=== PATIENT | female | born 1980 | race Caucasian/White ===

== ENCOUNTER 2018-05-24 01:42 | Emergency (ER) | payer OTHER, SELFPAY ==
[2018-05-24 01:46] VITALS: BP 130/84; PULSE 89; RESP 18; TEMP 37; O2SAT 100; BMI 25.0
[2018-05-24] MEDS: ONDANSETRON 4 MG/2 ML INJ IV (02:08)
[2018-05-24] MEDS: SODIUM CHLORIDE 0.9% 1,000 ML 1000 ML IV (02:08)
[2018-05-24 02:11] LABS: Add Manual Diff / Slide Review NO; Basophils Percent Auto 0.5 % (0-2); Eosinophils Percent Auto 2.6 % (2-4); Hematocrit 38.2 % (36-46); Hemoglobin 12.8 g/dL (12.0-16.0); Lymphocytes Percent Auto 26.2 % (25-40); Mean Corpuscular HGB Conc 33.4 % (30-36); Mean Corpuscular Hemoglobin 30.4 PG (26-34); Mean Corpuscular Volume 91.1 fL (80-100); Neutrophils Absolute Auto 7800 /uL (3000-5900); Neutrophils Percent Auto 64.7 % (50-75); Platelet Count 246 X10^3/uL (150-400); Red Blood Cell Count 4.19 X10^6/uL (4.0-5.2); Red Cell Distribution Width 12.7 % (11.6-14.8)
[2018-05-24 02:21] LABS: Alanine Aminotransferase 19 IU/L (9-52); Albumin 4.5 g/dL (3.5-5.0); Albumin Globulin Ratio 1.5 (1.0-2.8); Alkaline Phosphatase 39 U/L (38-126); Aspartate Aminotransferase 22 IU/L (14-36); Bilirubin Total 0.3 mg/dL (0.2-1.3); Blood Urea Nitrogen 9 mg/dL (7-17); Calcium 9.4 mg/dL (8.4-10.2); Carbon Dioxide 27 mmol/L (22-32); Chloride 105 mmol/L (98-107); Estimated Glomerular Filt Rate > 60.0 mL/min (>60); Glucose 98 mg/dL (70-100); HEMOLYSIS < 15 (0-50); Potassium 3.8 mmol/L (3.4-5.1); Sodium 145 mmol/L (137-145); Total Protein 7.5 g/dL (6.3-8.2)
[2018-05-24 02:31] LABS: Appearance Urine UA CLOUDY; Bilirubin Urine UA 1+ (NEGATIVE); Color Urine UA YELLOW; Glucose Urine UA NEGATIVE (Normal); Ketones Urine UA NEGATIVE (NEGATIVE); Leukocyte Esterase Urine UA 2+ (NEGATIVE); Nitrite Urine UA Negative (Negative); Occult Blood Urine UA 3+ (Negative); Protein Urine UA 2+ (Negative); Specific Gravity Urine UA 1.015 (1.000-1.035); Urobilinogen Urine UA 0.2 E.U./dL (0.2)
[2018-05-24] MEDS: CEFTRIAXONE 1 GM/50 ML FROZ.PIGGY IV (02:34)
[2018-05-24 02:40] LABS: Pregnancy Test Urine Negative (Negative)
--- NOTE | 2018-05-24 02:40 | ED_ITS ---
HPI - Female Genitourinary General Chief complaint: Urogenital-Female Stated complaint: right side back pain, thinks she has kidney stone Time Seen by Provider: 05/24/18 01:44 Source: patient Mode of arrival: ambulatory Limitations: no limitations History of Present Illness HPI Narrative: 37-year-old female with history of frequent UTIs presents to the emergency department with a chief complaint of 2 days of dysuria, frequency and urgency and the development of significant right flank pain with nausea this evening. She was most recently treated for a UTI about 2 weeks ago and had a 5 day course of an unknown antibiotic. She states she had a complete resolution of her symptoms until 2 days ago. She denies provocation, palliation of her pain but does admit it starts in her right flank and wraps around her right side a bit. She denies any history of kidney stones. She states is unlikely as she has had a tubal ligation but she is sexually active. She denies vaginal bleeding or discharge MD Complaint: dysuria and UTI Onset (ago): day(s) Female Urogenital Radiation: R Flank Severity: severe Quality: Aching, Burning and Cramping Duration: constant Relieving factors: none Exacerbating factors: none Urinary symptoms: Difficulty Urinating, Dysuria, Flank Pain, Foul Smelling Urine , Frequency, Hematuria and Urgency Patient : No Related Data Home Medications Medication Instructions Recorded Confirmed etodolac 400 mg PO TID 05/24/18 05/24/18 Previous Rx's Medication Instructions Recorded cephalexin [Keflex] 500 mg PO QID 14 Days #56 cap 05/24/18 hydrocodone-acetaminophen 1 tab PO Q4-6H PRN #14 tab 05/24/18 ondansetron [Zofran ODT] 4 mg PO Q6H PRN #14 tab 05/24/18 Allergies Allergy/AdvReac Type Severity Reaction Status Date / Time nitrofurantoin Allergy Unknown Verified 05/24/18 02:53 [NITROFURANTOIN] zolpidem [ZOLPIDEM] AdvReac Unknown hallucinate Verified 05/24/18 02:53 Review of Systems Review of Systems All systems reviewed & are unremarkable except as noted in HPI and below Constitutional Denies chills, Denies fever(s), Denies lethargy and Denies weakness Eyes Denies change in vision, Denies eye discharge, Denies irritation and Denies loss of vision ENT Ears, Nose, Mouth, and Throat: Denies change in voice, Denies neck pain and Denies sore throat Cardiovascular Denies chest pain, Denies irregular heart rhythm, Denies lightheadedness, Denies palpitations, Denies dyspnea, Denies dyspnea on exertion and Denies orthopnea Respiratory Denies cough, Denies dyspnea, Denies dyspnea on exertion and Denies wheezing Gastrointestinal Gastrointestinal: Denies abdominal pain, Denies change in bowel habits, Denies diarrhea, Reports nausea and Denies vomiting Genitourinary Reports hematuria, Denies flank pain, Denies urinary incontinence and Reports urinary urgency Musculoskeletal Denies neck pain Integumentary/Breasts Denies pruritus, Denies erythema, Denies rash and Denies wounds Neurologic Denies confusion, Denies loss of vision and Denies weakness Psychiatric Denies anxiety, Denies confusion, Denies depression, Denies homicidal ideation and Denies suicidal ideation Endocrine Denies palpitations Hematologic/Lymphatic Denies easy bruising Allergic/Immunologic Denies wheezing [facility] Surgical History Status post delivery (06/03/00) Status post delivery (05/14/03) Status post delivery (03/17/14) Exam Narrative Exam Narrative: 37-year-old female in obvious pain, clutching her right flank Initial Vital Signs Initial Vital Signs: Vital Signs Temperature 98.6 F 05/24/18 01:46 Pulse Rate 89 05/24/18 01:46 Respiratory Rate 18 05/24/18 01:46 Blood Pressure 130/84 H 05/24/18 01:46 Pulse Oximetry 100 05/24/18 01:46 Const General: cooperative, well developed and acute distress Nutritional Appearance: well nourished Orientation: alert, awake, oriented x3 and not confused [facility] Head: normocephalic and atraumatic Ears: external ears normal and TM's normal bilaterally Nose: external nose normal and No nasal discharge Face and sinus: sinuses nontender, face symmetric, no sinus tenderness and No dry mucous membranes Mouth: oral mucosae normal and moist mucous membranes Teeth and gingiva: dentition normal Throat: tonsils normal and uvula midline Chest Chest: normal inspection of the chest Cardio Rate: regular rate Rhythm: regular rhythm Heart Sounds: no click, no gallops, no murmurs and no rubs Pulses: normal peripheral pulses Back/Spine/Pelvis Back: No CVA tenderness Cervical Spine: cervical ROM normal and No pain with cervical ROM Thoracic/Lumbar Spine: thoracic and lumbar spine normal to inspection Skin General: no rashes or lesions noted, No jaundice and No petechiae Neuro General: alert, oriented x3, gait normal and no focal motor deficits Speech: speech normal Extrem General: full ROM, no clubbing, cyanosis or edema, no pedal edema and no calf tenderness Psych Appearance: well kempt Mental Status: mental status grossly normal Attitude: cooperative Thought Content: normal and suicidality Judgment: judgment good Course Orders Ordered: ED Orders 05/24/18 01:55 Ictotest Urine Stat Test Urine Stat Urinalysis and Microscopic Stat Urine Culture Stat 05/24/18 02:00 Complete Blood Count AUTO DIFF Stat Comprehensive Metabolic Panel Stat 05/24/18 02:41 CT kidney ureter bladder (KUB) Stat Discontinued Medications Hydrocodone Bitart/Acetaminophen (Vicodin Prepack) 1 bottle MISC SEEINSTR ONE Stop: 05/24/18 03:19 Last Admin: 05/24/18 03:29 Dose: 1 bottle Sodium Chloride (Normal Saline 0.9%) 1,000 mls @ 1,000 mls/hr IV BOLUS ONE Stop: 05/24/18 02:51 Last Infusion: 05/24/18 03:29 Dose: 0 mls/hr Admin: 05/24/18 02:08 Dose: 1,000 mls/hr Ceftriaxone Sodium/Dextrose (Rocephin) 1 gm in 50 mls @ 100 mls/hr IV NOW ONE Stop: 05/24/18 02:54 Last Infusion: 05/24/18 03:29 Dose: 0 mls/hr Admin: 05/24/18 02:34 Dose: 100 mls/hr Ondansetron HCl (Zofran) 4 mg IV NOW ONE Stop: 05/24/18 01:53 Last Admin: 05/24/18 02:08 Dose: 4 mg Ondansetron HCl (Zofran Odt Prepack) 1 bottle MISC SEEINSTR ONE Stop: 05/24/18 03:19 Last Admin: 05/24/18 03:29 Dose: 1 bottle Vital Signs - 8 hr 05/24/18 01:46 05/24/18 03:38 Temperature 98.6 F Pulse Rate 89 71 Respiratory Rate 18 16 Blood Pressure 130/84 H 107/75 Pulse Oximetry 100 99 MDM - Female Genitourinary Differential Diagnosis Likely urinary tract infection, bacterial vaginosis, ovarian cyst and cystitis Medical Records Attestation: I reviewed the patient's medical records. Lab Data Attestation: I reviewed the patient's lab results. Result diagrams: 05/24/18 02:00 05/24/18 02:00 Lab Results 05/24/18 05/24/18 05/24/18 Range/Units 01:55 02:00 02:00 WBC 12.0 H (4.5-11.0) X10^3/uL RBC 4.19 (4.0-5.2) X10^6/uL Hgb 12.8 (12.0-16.0) g/dL Hct 38.2 (36-46) % MCV 91.1 (80-100) fL MCH 30.4 (26-34) PG MCHC 33.4 (30-36) % RDW 12.7 (11.6-14.8) % Plt Count 246 (150-400) X10^3/uL Neut % (Auto) 64.7 (50-75) % Lymph % (Auto) 26.2 (25-40) % Grand % (Auto) 6.0 (3-14) % Eos % (Auto) 2.6 (2-4) % Baso % (Auto) 0.5 (0-2) % Neut # (Auto) 7800 H (1595-8214) /uL Sodium 145 (137-145) mmol/L Potassium 3.8 (3.4-5.1) mmol/L Chloride 105 (98-107) mmol/L Carbon Dioxide 27 (22-32) mmol/L BUN 9 (7-17) mg/dL Creatinine 0.60 (0.52-1.04) mg/dL Estimated GFR > 60.0 (>60) mL/min BUN/Creatinine Ratio 15.0 (6-22) Glucose 98 (70-100) mg/dL Calcium 9.4 (8.4-10.2) mg/dL Total Bilirubin 0.3 (0.2-1.3) mg/dL AST 22 (14-36) IU/L ALT 19 (9-52) IU/L Alkaline Phosphatase 39 (38-126) U/L Total Protein 7.5 (6.3-8.2) g/dL Albumin 4.5 (3.5-5.0) g/dL Globulin 3.0 (1.7-4.1) g/dL Albumin/Globulin Ratio 1.5 (1.0-2.8) Urine Color Yellow Urine Appearance Cloudy Urine pH 7.0 (4.5-8.0) Ur Specific [place] 1.015 (1.000-1.035) Urine Protein 2+ H (Negative) Urine Glucose (UA) Negative (Normal) g/dL Urine Ketones Negative (NEGATIVE) Urine Occult Blood 3+ H (Negative) Urine Nitrate Negative (Negative) Urine Bilirubin 1+ H (NEGATIVE) Urine Ictotest Negative (Negative) Urine Urobilinogen 0.2 (0.2) E.U./dL Ur Leukocyte Esterase 2+ H (NEGATIVE) Urine RBC 30-100/hpf H (0-5/HPF) Urine WBC 30-100/hpf H (0-5/HPF) Ur Squamous Epith Cells 0-1 /hpf Urine Bacteria Moderate (10-30) H (None) Ur Culture Indicated? Specimen cultured Micro UA Comment Not Reportable Urine Test Negative (Negative) Imaging Data CT scan - abdomen: Radiologist's impression: Very mild right hydroureteronephrosis without CT suicide ureteral or bladder stone. Findings may relate to a recently passed stone given patient's history MDM Narrative Medical decision making narrative: Patient has frequent history of urinary tract infections and classic description of UTI including dysuria, frequency, urgency and hematuria. She progressed to flank pain with nausea which is certainly most consistent with a pyelonephritis however given lack of provocation and palliation the question of kidney stone presents itself. There is no kidney stone noted on the CT but suggestion of potential for a passed stone. The patient is not septic and her symptoms are greatly improved after taking her own he total lack with our IV fluids. She is appropriate to discharge and follow up in the office Discharge Plan Departure Patient Disposition: Home Clinical Impression: Urinary tract infection Discharge Date/Time: 05/24/18 03:41 Interventions: ED Discharge Assessment Last Done: 05/24/18 03:38 Instructions: DI for Kidney Infection Activity Restrictions/Additional Instructions: *You have been diagnosed with [ acute pyelonephritis ] *What to do: *Take medications as directed *Follow up with your primary care provider in 2-3 days, call for an appointment. Let them know you were seen in the Emergency Department and that we ask that you be seen in follow up *Return to ER if you should have any new, worsening or concerning symptoms Prescriptions: New hydrocodone-acetaminophen 5-325 mg tablet 1 tab PO Q4-6H PRN (Reason: pain) Qty: 14 RF: 0 cephalexin [Keflex] 500 mg capsule 500 mg PO QID 14 Days Qty: 56 RF: 0 ondansetron [Zofran ODT] 4 mg tablet,disintegrating 4 mg PO Q6H PRN (Reason: nausea and vomiting) Qty: 14 RF: 0 No Action etodolac 400 mg Tablet 400 mg PO TID RF: 0 Referrals: Daniel Davis MD [Family Provider] -
--- NOTE | 2018-05-24 02:41 | DI.CT.S_ITS ---
PROCEDURE: CT KIDNEY URETER BLADDER (KUB) INDICATIONS: R flank pain, hematuria, radiation to groin TECHNIQUE: Noncontrast 5 mm thick sections acquired from the diaphragms to the symphysis. 5 mm thick coronal and sagittal reformats were then performed. For radiation dose reduction, the following was used: automated exposure control, adjustment of mA and/or kV according to patient size. COMPARISON: None. FINDINGS: Image quality: Excellent. Lung bases: Lung bases are clear. Heart size is normal. Urinary system: Both kidneys are normal in size. No kidney stones. No definite hydronephrosis is seen. There is mild right renal pelviectasis, and possible ureteral dilatation raising the possibility of recently passed right sided calculus although recommend clinical correlation. No left-sided urolithiasis. Bladder wall thickness is normal; no calcified bladder stones. Other solid organs: Liver is normal in size. Gallbladder unremarkable. Pancreas is normal in contours. Spleen is normal in size. No adrenal nodules. Peritoneum and bowel: Unenhanced bowel loops demonstrate normal wall thickness and caliber. No free fluid or air. Appendix appears normal in size. There is air in the lumen and some segments there there is a possible 1-2 mm appendicolith although technically indeterminate image 68. Nodes and vessels: No retroperitoneal or mesenteric adenopathy by size criteria. Aorta and inferior vena cava are normal in caliber. Abdominal wall: Tiny fat containing umbilical hernia noted Pelvis: Uterus and ovaries grossly unremarkable. Trace, possibly physiologic, pelvic and right adnexal fluid, although this could be due to a ruptured right ovarian cyst recommend clinical correlation with pelvic ultrasound followup if clinically necessary. No inguinal hernias or adenopathy. Bones: No suspicious bony lesions. No vertebral body compression fractures. IMPRESSION: No definite urolithiasis is currently visualized. Possible recently passed right sided calculus as discussed above although recommend clinical correlation. No evidence of acute appendicitis. No bowel obstruction. Dictated by: Warren Almeida M.D. on 05/24/2018 at 7:22 Approved by: Warren Almeida M.D. on 05/24/2018 at 7:27
[2018-05-24 02:48] LABS: Ictotest Urine Negative (Negative)
[2018-05-24 02:49] LABS: RBC Urine 30-100/HPF (0-5/HPF)
[2018-05-24 02:50] LABS: Bacteria Urine Moderate (10-30); Culture Indicated Urine Specimen Cultured; Squamous Epithelial Cell Urine 0-1 /HPF; WBC Urine 30-100/HPF (0-5/HPF)
[2018-05-24] MEDS: ONDANSETRON 4 MG ODT PREPACK 1 BOTTLE MISC (03:29)
[2018-05-24] MEDS: HYDROCODONE/ACET 5/325 PREPACK 1 BOTTLE MISC (03:29)
[2018-05-24 03:38] VITALS: BP 107/75; PULSE 71; RESP 16; O2SAT 99
== END 2018-05-24 03:41 | disposition home or self-care (01) ==
PROVIDERS: Emergency Provider Emergency Medicine; Family Provider Family Medicine
DX: N39.0 Urinary tract infection, site not specified (principal)
CPT/HCPCS: 36591; 74176; 80053; 81001; 81025; 85025; 87077; 87086; 87186; 96365; 96375; 99283; 99284; J2405

== ENCOUNTER → 2018-08-17 13:03 | Outpatient (CLI) | payer OTHER, SELFPAY ==
--- NOTE | 2018-08-17 | DI.US.S_ITS ---
LIMITED ULTRASOUND OF RIGHT BREAST: 08/17/2018 CLINICAL: Focal right breast pain. Comparison is made to exam dated: 08/17/2018 [facility]. Real-time and Doppler ultrasound of the right breast upper outer quadrant were performed. [place] scale images of the real-time examination were reviewed. Targeted ultrasound was performed in the region of the patient's reported focal painful palpable abnormality in the upper outer right breast. No underlying breast mass or abnormality is identified. IMPRESSION: NEGATIVE 1) No ultrasound findings to explain patient's reported focal pain/palpable abnormality. Recommend clinical follow-up for further evaluation and management of the patient's reported symptoms. 2) There is no sonographic evidence of malignancy in the imaged upper outer right breast. Annual screening mammography beginning at age 40 is recommended. The patient is advised to monitor her breasts and to return sooner for re-evaluation should she feel anything grow or change. This exam was interpreted at Station ID: [id number]. Electronically Signed By: Bo Garcia M.D. ecl/:08/17/2018 15:13:04 letter sent: Clinical Evaluation Ultrasound BI-RADS: 1 Negative
--- NOTE | 2018-08-17 | DI.MG.S_ITS ---
BILATERAL DIGITAL DIAGNOSTIC MAMMOGRAM 3D/2D: 08/17/2018 CLINICAL: Right breast lump and pain. Baseline exam. No prior exams were available for comparison. The tissue of both breasts is extremely dense, which lowers the sensitivity of mammography. There is a triangular marker overlying the skin of the upper outer right breast at posterior depth at the site of the patient's reported focal painful palpable abnormality. There is no underlying mammographic abnormality. No significant masses, calcifications, or other findings are seen in either breast. IMPRESSION: INCOMPLETE: NEEDS ADDITIONAL IMAGING EVALUATION No mammographic abnormality to correlate with the site of the patient's reported focal painful palpable abnormality. Targeted diagnostic ultrasound recommended for further evaluation, which will be performed immediately following this exam. This exam was interpreted at Station ID: [id number]. NOTE: For mammograms, a report in lay terms will be sent to the patient. Approximately 15% of breast malignancies will not be visualized mammographically. In the management of a palpable breast mass, a negative mammogram must not discourage biopsy of a clinically suspicious lesion. Electronically Signed By: Bo Garcia M.D. ecl/:08/17/2018 13:59:42 letter sent: Additional Imaging Needed ACR BI-RADS Category 0: Incomplete [id number]
== END ==
PROVIDERS: Family Provider Family Medicine; Visit Provider Family Medicine
DX: R92.8 Other abnormal and inconclusive findings on diagnostic imaging of breast (principal); N63.11 Unspecified lump in the right breast, upper outer quadrant; N64.4 Mastodynia
CPT/HCPCS: 76642; 77066; G0279

== ENCOUNTER → 2019-04-19 11:24 | Outpatient (CLI) | payer OTHER, SELFPAY ==
--- NOTE | 2019-04-19 | DI.RAD.S_ITS ---
PROCEDURE: XR CHEST 2V INDICATIONS: Dyspnea TECHNIQUE: 2 views of the chest were acquired. COMPARISON: None. FINDINGS: Surgical changes and devices: None. Lungs and pleura: Lungs are clear. No pleural effusions or pneumothorax. Mediastinum: Mediastinal contours are normal. Heart size is normal. Bones and chest wall: No suspicious bony abnormalities. Soft tissues appear unremarkable. IMPRESSION: No acute cardiopulmonary disease. Dictated by: Leilani Mullen M.D. on 04/19/2019 at 14:59 Approved by: Leilani Mullen M.D. on 04/19/2019 at 14:59
== END ==
PROVIDERS: PCP Family Medicine; Visit Provider Family Medicine
DX: R06.00 Dyspnea, unspecified (principal)
CPT/HCPCS: 71046

== ENCOUNTER 2020-09-22 14:22 | Emergency (ER) | payer OTHER, SELFPAY ==
[2020-09-22 14:30] VITALS: BP 139/63; PULSE 71; RESP 16; TEMP 36.9; O2SAT 100; BMI 25.0
--- NOTE | 2020-09-22 14:37 | DI.RAD.S_ITS ---
PROCEDURE: XR CHEST 1V INDICATIONS: chest pain TECHNIQUE: One view of the chest was acquired. COMPARISON: [facility], CR, XR CHEST 2V, 04/19/2019, 11:34. FINDINGS: Surgical changes and devices: None. Lungs and pleura: Lungs are clear. No pleural effusions or pneumothorax. Mediastinum: Mediastinal contours appear normal. Heart size is normal. Bones and chest wall: No suspicious bony lesions. Overlying soft tissues appear unremarkable. IMPRESSION: Normal portable chest, without a cause of chest pain identified. Dictated by: Agusto Stafford M.D. on 09/22/2020 at 14:39 Approved by: Agusto Stafford M.D. on 09/22/2020 at 14:44
[2020-09-22 14:50] VITALS: O2SAT 99
[2020-09-22 14:51] VITALS: BP 117/69; PULSE 71; O2SAT 100
[2020-09-22 15:00] VITALS: BP 119/77; PULSE 73; O2SAT 100
--- NOTE | 2020-09-22 15:14 | ED.SOB ---
HPI - SOB/Dyspnea General Chief Complaint: Shortness of Breath/Dyspnea Stated Complaint: SOB,Tightness In Chest Time Seen by Provider: 09/22/20 14:36 Source: patient Mode of arrival: Ambulatory Limitations: no limitations History of Present Illness HPI Narrative: 39-year-old female nonsmoker with noncontributory medical history presents with a chief complaint of a few days of anterior chest pressure which makes her feel like it is difficult to breathe. She denies runny nose, sore throat or cough. She has had no fever or chills. She denies any nausea, vomiting or nausea. She denies any radiation of the tightness nor any exertional component. She has had no unexplained diaphoresis. Her recently had similar type symptoms and was tested for COVID which was negative. Her daughter was exposed to a person known to be positive about 1 week ago and has not been tested herself. She denies any recent travel, she does not take control and has never had a blood clot MD Complaint: shortness of breath and pain with inspiration Onset (ago): day(s) Severity: mild Consistency/Duration: constant Relieving factors: nothing Exacerbating factors: nothing Associated symptoms: denies other symptoms Treatment prior to arrival: none Related Data Home oxygen amount: none Home Medications Medication Instructions Recorded Confirmed etodolac 400 mg PO TID 05/24/18 05/24/18 Previous Rx's Medication Instructions Recorded hydrocodone-acetaminophen 1 tab PO Q4-6H PRN #14 tab 05/24/18 ondansetron [Zofran ODT] 4 mg PO Q6H PRN #14 tab 05/24/18 Allergies Allergy/AdvReac Type Severity Reaction Status Date / Time nitrofurantoin Allergy Unknown Verified 09/22/20 14:36 [NITROFURANTOIN] zolpidem [ZOLPIDEM] AdvReac Unknown hallucinate Verified 09/22/20 14:36 Review of Systems Constitutional Constitutional: Denies chills, Denies fatigue, Denies fever(s), Denies frequent falls, Denies lethargy and Denies weakness Eyes Eyes: Denies change in vision, Denies eye discharge, Denies irritation and Denies loss of vision ENT Ears, Nose, Mouth, and Throat: Denies change in voice, Denies dizziness, Denies neck pain, Denies sore throat and Denies throat swelling Cardiovascular Cardiovascular: Denies chest pain (Describes as a squeezing when breathing), Denies irregular heart rhythm, Denies lightheadedness, Denies palpitations, Reports dyspnea, Denies dyspnea on exertion and Denies orthopnea Respiratory Respiratory: Denies cough, Reports dyspnea, Denies dyspnea on exertion and Denies wheezing Gastrointestinal Gastrointestinal: Denies abdominal pain, Denies change in bowel habits, Denies diarrhea, Denies nausea and Denies vomiting Musculoskeletal Musculoskeletal: Denies neck pain and Denies numbness Integumentary/Breasts Skin/Breast: Denies pruritus, Denies erythema, Denies rash and Denies wounds Neurologic Neurologic: Denies behavioral changes, Denies confusion, Denies dizziness, Denies frequent falls, Denies loss of vision, Denies numbness and Denies weakness Psychiatric Psychiatric: Denies anxiety, Denies behavioral changes, Denies confusion, Denies depression, Denies homicidal ideation and Denies suicidal ideation Endocrine Endocrine: Denies fatigue, Denies flushing and Denies palpitations Hematologic/Lymphatic Hematologic/Lymphatic: Denies easy bruising Allergic/Immunologic Allergic/Immunologic: Denies urticaria, Denies throat swelling and Denies wheezing Patient History Surgical History Status post delivery (06/03/00) Status post delivery (05/14/03) Status post delivery (03/17/14) Social History Smoking Status: Never smoker Smoking Status: Never smoker alcohol intake frequency: 0-2 drinks per day Substance Use Type: does not use Exam Narrative Exam Narrative: GENERAL: [39] year old patient appears stated age. Well-nourished, well-developed patient, in mild distress. HEAD: Atraumatic. Normocephalic. EYES: Pupils equal round and reactive. Extraocular motions intact. No scleral icterus. No injection or drainage. ENT: Nose without bleeding, purulent drainage. Throat without erythema, tonsillar hypertrophy or exudate. Airway patent. NECK: Trachea midline. Non tender CARDIOVASCULAR: Regular rate and rhythm without murmurs, gallops, or rubs. RESPIRATORY: Clear to auscultation. Breath sounds equal bilaterally. No wheezes, rales, or rhonchi. GASTROINTESTINAL: Abdomen soft, non-tender, nondistended. EXTREMITIES: No edema or joint tenderness. BACK: Nontender without deformity or crepitance. No flank tenderness. NEURO: AOx3. SKIN: No rash or erythema of visible areas Initial Vital Signs Initial Vital Signs: Vital Signs Temperature 98.4 F 09/22/20 14:30 Pulse Rate 71 09/22/20 14:30 Respiratory Rate 16 09/22/20 14:30 Blood Pressure 139/63 09/22/20 14:30 Pulse Oximetry 100 09/22/20 14:30 Scores HEART Score Heart Score history: Slightly Suspicious Heart Score EKG: Normal Heart Score Age: < 45 years old Heart Score risk factors: No known risk factors Heart Score troponin: < or = to normal limit Heart Score Total: 0 PERC Score Age greater than or equal to 50 years: No Heart rate greater than or equal to 100 bpm: No Room Air O2 Sat less than 95%: No Unilateral leg swelling: No Recent trauma or surgery: No Hemoptysis: No Prior PE or DVT: No Hormone Use: No Total PERC Score: 0 Wells' Criteria for PE Clinical signs and symptoms of DVT: No PE is #1 Dx or equally likely: No Heart rate > 100: No Immobilization at least 3 days or surg in previous 4 weeks: No History of PE or DVT: No Hemoptysis: No Malignancy w/Treatment within 6 months or palliative: No Wells' PE Score total: 0 Course Orders Ordered: ED Orders 09/22/20 14:37 XR chest 1V Stat EKG-12 Lead Stat 09/22/20 15:15 Complete Blood Count AUTO DIFF Stat Comprehensive Metabolic Panel Stat D Dimer Stat Lipase Stat Partial Thromboplastin Time Stat Prothrombin Time INR Stat Troponin & CK Cardiac Panel Stat 09/22/20 15:22 COVID19 Stat Vital Signs Vital signs: Vital Signs - 8 hr 09/22/20 14:30 09/22/20 14:50 09/22/20 14:51 Temperature 98.4 F Pulse Rate 71 71 Respiratory Rate 16 Blood Pressure 139/63 117/69 Pulse Oximetry 100 99 100 09/22/20 15:00 09/22/20 15:30 09/22/20 16:00 Temperature Pulse Rate 73 65 74 Respiratory Rate Blood Pressure 119/77 126/68 126/77 Pulse Oximetry 100 100 99 MDM - SOB/Dyspnea Lab Data Result diagrams: 09/22/20 15:15 09/22/20 15:15 Labs: Lab Results 09/22/20 09/22/20 09/22/20 Range/Units 15:15 15:15 15:15 WBC 7.7 (4.5-11.0) X10^3/uL RBC 4.25 (4.0-5.2) X10^6/uL Hgb 13.0 (12.0-16.0) g/dL Hct 39.3 (36-46) % MCV 92.5 (80-100) fL MCH 30.6 (26-34) PG MCHC 33.1 (30-36) % RDW 12.7 (11.6-14.8) % Plt Count 214 (150-400) X10^3/uL Neut % (Auto) 58.8 (50-75) % Lymph % (Auto) 28.2 (25-40) % [place] % (Auto) 9.4 (3-14) % Eos % (Auto) 3.1 (2-4) % Baso % (Auto) 0.5 (0-2) % Neut # (Auto) 4500 (8411-5431) /uL Lymph # (Auto) 2200 (7208-6866) /uL [place] # (Auto) 700 (0-900) /uL Eos # (Auto) 200 (0-450) /uL Baso # (Auto) 0 (0-100) /uL PT 12.5 (10.1-12.7) SECONDS INR 1.1 (0.9-1.3) APTT 30 (26.4-36.2) SECONDS D-Dimer (<230) ng/mL Sodium 137 (137-145) mmol/L Potassium 4.3 (3.4-5.1) mmol/L Chloride 103 (98-107) mmol/L Carbon Dioxide 30 (22-32) mmol/L BUN 15 (7-17) mg/dL Creatinine 0.65 (0.52-1.04) mg/dL Estimated GFR > 60.0 (>60) mL/min BUN/Creatinine Ratio 23.1 H (6-22) Glucose 91 (70-100) mg/dL Calcium 9.7 (8.4-10.2) mg/dL Total Bilirubin 0.4 (0.2-1.3) mg/dL AST 26 (14-36) IU/L ALT 15 (<35) IU/L Alkaline Phosphatase 54 (38-126) U/L Total Creatine Kinase 52 (30-135) U/L CK-MB (CK-2) TNP CK-MB (CK-2) Rel Index TNP Troponin I < 0.012 (0.01-0.034) ng/mL Total Protein 8.0 (6.3-8.2) g/dL Albumin 4.5 (3.5-5.0) g/dL Globulin 3.5 (1.7-4.1) g/dL Albumin/Globulin Ratio 1.3 (1.0-2.8) Lipase 75 (23-300) U/L COVID-19 PCR (Negative) 09/22/20 09/22/20 Range/Units 15:15 15:22 WBC (4.5-11.0) X10^3/uL RBC (4.0-5.2) X10^6/uL Hgb (12.0-16.0) g/dL Hct (36-46) % MCV (80-100) fL MCH (26-34) PG MCHC (30-36) % RDW (11.6-14.8) % Plt Count (150-400) X10^3/uL Neut % (Auto) (50-75) % Lymph % (Auto) (25-40) % [place] % (Auto) (3-14) % Eos % (Auto) (2-4) % Baso % (Auto) (0-2) % Neut # (Auto) (7124-6471) /uL Lymph # (Auto) (1069-3522) /uL [place] # (Auto) (0-900) /uL Eos # (Auto) (0-450) /uL Baso # (Auto) (0-100) /uL PT (10.1-12.7) SECONDS INR (0.9-1.3) APTT (26.4-36.2) SECONDS D-Dimer 271 H (<230) ng/mL Sodium (137-145) mmol/L Potassium (3.4-5.1) mmol/L Chloride (98-107) mmol/L Carbon Dioxide (22-32) mmol/L BUN (7-17) mg/dL Creatinine (0.52-1.04) mg/dL Estimated GFR (>60) mL/min BUN/Creatinine Ratio (6-22) Glucose (70-100) mg/dL Calcium (8.4-10.2) mg/dL Total Bilirubin (0.2-1.3) mg/dL AST (14-36) IU/L ALT (<35) IU/L Alkaline Phosphatase (38-126) U/L Total Creatine Kinase (30-135) U/L CK-MB (CK-2) CK-MB (CK-2) Rel Index Troponin I (0.01-0.034) ng/mL Total Protein (6.3-8.2) g/dL Albumin (3.5-5.0) g/dL Globulin (1.7-4.1) g/dL Albumin/Globulin Ratio (1.0-2.8) Lipase (23-300) U/L COVID-19 PCR Negative (Negative) Imaging Data Chest x-ray: Radiologist's Impression: Signed Patient: Yudith Servin R#: [id number]: 1980Acct:[id number]/Sex: 39 / FDate of Service: 09/22/20Loc: EDAccession Number: [id number] Procedure: XR chest 1V Ordering Provider: Jarad Bond D.O. PROCEDURE: XR CHEST 1V INDICATIONS: chest pain TECHNIQUE: One view of the chest was acquired. COMPARISON: [facility], , XR CHEST 2V, 04/19/2019, 11:34. FINDINGS: Surgical changes and devices: None. Lungs and pleura: Lungs are clear. No pleural effusions or pneumothorax. Mediastinum: Mediastinal contours appear normal. Heart size is normal. Bones and chest wall: No suspicious bony lesions. Overlying soft tissues appear unremarkable. IMPRESSION: Normal portable chest, without a cause of chest pain identified. Dictated by: Agusto Stafford M.D. on 09/22/2020 at 14:39 Approved by: Agusto Stafford M.D. on 09/22/2020 at 14:44 ECG Data Attestation: I personally reviewed and interpreted this ECG as follows: Interpretation: EKG is normal sinus rhythm rate [ 73] and free of any signs of ischemia or ectopy. No ST segmental elevation or depression. No T wave inversions MDM Narrative Medical decision making narrative: Multiple etiologies for patient's symptoms considered including: [COVID-19 versus atypical pneumonia versus cardiac disease versus pulmonary embolism versus other. D-dimer is slightly above our cutoff, however using Isrrael Fitzpatrick's PE algorithm, it is well below the PE cutoff of 500 which would suggest pursuing PE with CTA ] Patient's symptoms improved over duration of stay with above-stated therapies. Findings and discharge diagnosis discussed with patient/family followed by verbalization of understanding Return precautions discussed with patient/family whom verbalize understanding. Discharge Plan Departure Patient Disposition: Home Clinical Impression: Acute dyspnea Instructions: DI for Shortness of Breath Activity Restrictions/Additional Instructions: *You have been diagnosed with [acute dyspnea with very reassuring exam and labs. Chest x-ray was clear. COVID negative] *What to do: *Take medications as directed *Follow up with your primary care provider in 2-3 days, call for an appointment. Let them know you were seen in the Emergency Department and that we ask that you be seen in follow up *Return to ER if you should have any new, worsening or concerning symptoms Prescriptions: No Action etodolac 400 mg Tablet 400 mg PO TID RF: 0 hydrocodone-acetaminophen 5-325 mg tablet 1 tab PO Q4-6H PRN (Reason: pain) Qty: 14 RF: 0 ondansetron [Zofran ODT] 4 mg tablet,disintegrating 4 mg PO Q6H PRN (Reason: nausea and vomiting) Qty: 14 RF: 0 Referrals: Daniel Davis MD [Primary Care Provider] -
[2020-09-22 15:24] LABS: Add Manual Diff / Slide Review NO; Basophils Absolute Auto 0 /uL (0-100); Basophils Percent Auto 0.5 % (0-2); Eosinophils Absolute Auto 200 /uL (0-450); Eosinophils Percent Auto 3.1 % (2-4); Hematocrit 39.3 % (36-46); Lymphocytes Absolute Auto 2200 /uL (1100-4500); Lymphocytes Percent Auto 28.2 % (25-40); Mean Corpuscular HGB Conc 33.1 % (30-36); Mean Corpuscular Hemoglobin 30.6 PG (26-34); Mean Corpuscular Volume 92.5 fL (80-100); Monocytes Absolute Auto 700 /uL (0-900); Monocytes Percent Auto 9.4 % (3-14); Neutrophils Absolute Auto 4500 /uL (1500-7000); Neutrophils Percent Auto 58.8 % (50-75); Platelet Count 214 X10^3/uL (150-400); Red Blood Cell Count 4.25 X10^6/uL (4.0-5.2); Red Cell Distribution Width 12.7 % (11.6-14.8); White Blood Cell Count 7.7 X10^3/uL (4.5-11.0)
[2020-09-22 15:30] VITALS: BP 126/68; PULSE 65; O2SAT 100
[2020-09-22 15:43] LABS: INR 1.1 (0.9-1.3); Prothrombin Time 12.5 SECONDS (10.1-12.7)
[2020-09-22 15:46] LABS: PTT Partial Thromboplastin Tim 30 SECONDS (26.4-36.2)
[2020-09-22 15:50] LABS: Alanine Aminotransferase 15 IU/L (<35); Albumin 4.5 g/dL (3.5-5.0); Albumin Globulin Ratio 1.3 (1.0-2.8); Alkaline Phosphatase 54 U/L (38-126); Aspartate Aminotransferase 26 IU/L (14-36); BUN Creatinine Ratio 23.1 (6-22); Bilirubin Total 0.4 mg/dL (0.2-1.3); Blood Urea Nitrogen 15 mg/dL (7-17); Calcium 9.7 mg/dL (8.4-10.2); Carbon Dioxide 30 mmol/L (22-32); Chloride 103 mmol/L (98-107); Creatine Kinase 52 U/L (30-135); Estimated Glomerular Filt Rate > 60.0 mL/min (>60); Globulin 3.5 g/dL (1.7-4.1); Glucose 91 mg/dL (70-100); HEMOLYSIS < 15 (0-50); Lipase 75 U/L (23-300); Potassium 4.3 mmol/L (3.4-5.1); Sodium 137 mmol/L (137-145)
[2020-09-22 15:50] LABS: COVID19 -Nasal RAPID Negative (Negative)
[2020-09-22 15:55] LABS: D Dimer 271 ng/mL (<230)
[2020-09-22 16:00] VITALS: BP 126/77; PULSE 74; O2SAT 99
[2020-09-22 16:01] LABS: Troponin I < 0.012 ng/mL (0.01-0.034)
== END 2020-09-22 16:36 | disposition home or self-care (01) ==
PROVIDERS: Emergency Provider Emergency Medicine; PCP Family Medicine
DX: R06.00 Dyspnea, unspecified (principal); R07.9 Chest pain, unspecified; Z20.828 Contact with and (suspected) exposure to other viral communicable diseases
CPT/HCPCS: 36415; 71045; 80053; 82550; 83690; 84484; 85025; 85379; 85610; 85730; 87635; 93005; 99283; 99284

== ENCOUNTER 2021-01-01 18:17 | Emergency (ER) | payer OTHER, SELFPAY ==
[2021-01-01 18:20] VITALS: BP 133/88; PULSE 94; RESP 16; TEMP 37.1; O2SAT 100; BMI 25.8
--- NOTE | 2021-01-01 18:30 | DI.RAD.S_ITS ---
PROCEDURE: XR CHEST 2V INDICATIONS: SPOUSE COVID+ COUGHING TECHNIQUE: 2 views of the chest were acquired. COMPARISON: [facility], , XR CHEST 1V, 09/22/2020, 14:39. FINDINGS: Surgical changes and devices: None. Lungs and pleura: Lungs are clear. No pleural effusions or pneumothorax. Mediastinum: Mediastinal contours are normal. Heart size is normal. Bones and chest wall: No suspicious bony abnormalities. Soft tissues appear unremarkable. IMPRESSION: No acute cardiopulmonary abnormality Dictated by: Graham Schmitz M.D. on 01/01/2021 at 19:50 Approved by: Graham Schmitz M.D. on 01/01/2021 at 19:50
[2021-01-01 19:17] LABS: COVID19 -Nasal RAPID POSITIVE (Negative)
[2021-01-01 22:15] VITALS: BP 131/79; PULSE 96; RESP 12; O2SAT 100
[2021-01-01 22:30] VITALS: BP 121/69; PULSE 95; RESP 23; O2SAT 99
[2021-01-01 22:41] LABS: Add Manual Diff / Slide Review NO; Basophils Absolute Auto 0 /uL (0-100); Basophils Percent Auto 0.6 % (0-2); Eosinophils Absolute Auto 0 /uL (0-450); Eosinophils Percent Auto 0.9 % (2-4); Hematocrit 36.6 % (36-46); Hemoglobin 12.3 g/dL (12.0-16.0); Lymphocytes Absolute Auto 500 /uL (1100-4500); Lymphocytes Percent Auto 12.3 % (25-40); Mean Corpuscular HGB Conc 33.6 % (30-36); Mean Corpuscular Hemoglobin 30.9 PG (26-34); Mean Corpuscular Volume 91.9 fL (80-100); Monocytes Absolute Auto 600 /uL (0-900); Monocytes Percent Auto 16.2 % (3-14); Neutrophils Absolute Auto 2700 /uL (1500-7000); Platelet Count 169 X10^3/uL (150-400); Red Blood Cell Count 3.98 X10^6/uL (4.0-5.2); Red Cell Distribution Width 12.4 % (11.6-14.8); White Blood Cell Count 3.8 X10^3/uL (4.5-11.0)
[2021-01-01 22:43] LABS: INR 1.2 (0.9-1.3); Prothrombin Time 13.8 SECONDS (10.1-12.7)
[2021-01-01 22:46] LABS: Alanine Aminotransferase 17 IU/L (<35); Albumin 4.6 g/dL (3.5-5.0); Albumin Globulin Ratio 1.5 (1.0-2.8); Alkaline Phosphatase 48 U/L (38-126); Aspartate Aminotransferase 27 IU/L (14-36); BUN Creatinine Ratio 15.8 (6-22); Bilirubin Total 0.3 mg/dL (0.2-1.3); Blood Urea Nitrogen 9 mg/dL (7-17); Calcium 9.3 mg/dL (8.4-10.2); Carbon Dioxide 27 mmol/L (22-32); Chloride 104 mmol/L (98-107); Creatine Kinase 43 U/L (30-135); Estimated Glomerular Filt Rate > 60.0 mL/min (>60); Glucose 94 mg/dL (70-100); HEMOLYSIS < 15 (0-50); Lipase 68 U/L (23-300); PTT Partial Thromboplastin Tim 31 SECONDS (26.4-36.2); Potassium 3.9 mmol/L (3.4-5.1); Sodium 139 mmol/L (137-145); Total Protein 7.6 g/dL (6.3-8.2)
[2021-01-01 22:58] LABS: Troponin I < 0.012 ng/mL (0.01-0.034)
[2021-01-01 23:00] VITALS: BP 112/67; PULSE 91; RESP 12; O2SAT 97
[2021-01-01 23:30] VITALS: BP 127/68; PULSE 93; RESP 18; O2SAT 97
[2021-01-02] VITALS: BP 126/75; PULSE 95; RESP 24; O2SAT 97
--- NOTE | 2021-01-02 00:24 | ED.URI ---
HPI - URI/Sore Throat General Chief Complaint: Upper Respiratory Symptoms Stated Complaint: COUGH CHEST PAIN FEVER HAD COVID Time Seen by Provider: 01/02/21 00:24 Source: patient Mode of arrival: Ambulatory Limitations: no limitations History of Present Illness HPI Narrative: Patient is a 40-year-old female who presents with body aches which started 3 days ago. She states that her tested positive for COVID yesterday concerned that she has COVID. She denies loss of taste or smell is having some mild chest pain and shortness of breath. She has been taking vitamin D zinc and vitamin-C. He has body aches and pains MD Complaint: fever and cough Related Data Home Medications Medication Instructions Recorded Confirmed etodolac 400 mg PO TID 05/24/18 05/24/18 Previous Rx's Medication Instructions Recorded hydrocodone-acetaminophen 1 tab PO Q4-6H PRN #14 tab 05/24/18 ondansetron [Zofran ODT] 4 mg PO Q6H PRN #14 tab 05/24/18 Allergies Allergy/AdvReac Type Severity Reaction Status Date / Time nitrofurantoin Allergy Unknown Verified 09/22/20 14:36 [NITROFURANTOIN] zolpidem [ZOLPIDEM] AdvReac Unknown hallucinate Verified 09/22/20 14:36 Review of Systems Review of Systems ROS Unobtainable: All systems reviewed & are unremarkable except as noted in HPI and below Constitutional Constitutional: Reports body ache(s), Reports chills, Reports fatigue, Reports fever(s), Reports headache(s), Reports lethargy and Reports malaise ENT Ears, Nose, Mouth, and Throat: Reports headache(s) Cardiovascular Cardiovascular: Reports chest pain, Denies irregular heart rhythm, Denies leg edema and Reports dyspnea Respiratory Respiratory: Reports as per HPI, Reports cough and Reports dyspnea Gastrointestinal Gastrointestinal: Denies abdominal pain, Denies nausea and Denies vomiting Musculoskeletal Musculoskeletal: Reports as per HPI, Reports myalgias, Denies deformity and Denies arthralgias Integumentary/Breasts Skin/Breast: Denies pruritus, Denies erythema, Denies rash and Denies wounds Neurologic Neurologic: Reports headache(s) Endocrine Endocrine: Reports fatigue Patient History Surgical History Status post delivery (06/03/00) Status post delivery (05/14/03) Status post delivery (03/17/14) Social History Smoking Status: Never smoker Smoking Status: Never smoker alcohol intake frequency: 0-2 drinks per day Substance Use Type: does not use Exam Initial Vital Signs Initial Vital Signs: Vital Signs Temperature 98.8 F 01/01/21 18:20 Pulse Rate 94 H 01/01/21 18:20 Respiratory Rate 16 01/01/21 18:20 Blood Pressure 133/88 01/01/21 18:20 Pulse Oximetry 100 01/01/21 18:20 GENERAL: 40-year-old female who appears to not feel well and in no acute distress. HEENT: Head atraumatic,EOMI, pupils reactive CARDIOVASCULAR: Regular rate and rhythm without murmurs, rubs or gallops. RESPIRATORY: Breath sounds equal bilaterally, no wheezes rales or rhonchi. ABDOMEN: Soft, nontender. Normoactive bowel sounds all 4 quadrants. No guarding or rebound. EXTREMITIES: Normal range of motion, no clubbing or edema. Neurovascularly intact NEUROLOGICAL: Alert and oriented x4.Normal gait and speech. SKIN: Warm, dry, no laceration, no petechiae, no rashes or lesions. Course Orders Ordered: ED Orders 01/01/21 22:25 Complete Blood Count AUTO DIFF Stat Comprehensive Metabolic Panel Stat Lipase Stat Partial Thromboplastin Time Stat Prothrombin Time INR Stat Troponin & CK Cardiac Panel Stat 01/01/21 22:34 EKG-12 Lead Stat Vital Signs Vital signs: Vital Signs - 8 hr 01/01/21 23:30 01/02/21 00:00 01/02/21 00:30 Pulse Rate 93 H 95 H 103 H Respiratory Rate 18 24 20 Blood Pressure 127/68 126/75 130/65 Pulse Oximetry 97 97 96 MDM - URI/Sore Throat Lab Data Attestation: I reviewed the patient's lab results. Result diagrams: 01/01/21 22:25 01/01/21 22:25 Labs: Lab Results 01/01/21 01/01/21 01/01/21 Range/Units 18:28 22:25 22:25 WBC 3.8 L (4.5-11.0) X10^3/uL RBC 3.98 L (4.0-5.2) X10^6/uL Hgb 12.3 (12.0-16.0) g/dL Hct 36.6 (36-46) % MCV 91.9 (80-100) fL MCH 30.9 (26-34) PG MCHC 33.6 (30-36) % RDW 12.4 (11.6-14.8) % Plt Count 169 (150-400) X10^3/uL Neut % (Auto) 70.0 (50-75) % Lymph % (Auto) 12.3 L (25-40) % [place] % (Auto) 16.2 H (3-14) % Eos % (Auto) 0.9 L (2-4) % Baso % (Auto) 0.6 (0-2) % Neut # (Auto) 2700 (2982-7331) /uL Lymph # (Auto) 500 L (5776-0884) /uL [place] # (Auto) 600 (0-900) /uL Eos # (Auto) 0 (0-450) /uL Baso # (Auto) 0 (0-100) /uL PT 13.8 H (10.1-12.7) SECONDS INR 1.2 (0.9-1.3) APTT 31 (26.4-36.2) SECONDS Sodium (137-145) mmol/L Potassium (3.4-5.1) mmol/L Chloride (98-107) mmol/L Carbon Dioxide (22-32) mmol/L BUN (7-17) mg/dL Creatinine (0.52-1.04) mg/dL Estimated GFR (>60) mL/min BUN/Creatinine Ratio (6-22) Glucose (70-100) mg/dL Calcium (8.4-10.2) mg/dL Total Bilirubin (0.2-1.3) mg/dL AST (14-36) IU/L ALT (<35) IU/L Alkaline Phosphatase (38-126) U/L Total Creatine Kinase (30-135) U/L CK-MB (CK-2) CK-MB (CK-2) Rel Index Troponin I (0.01-0.034) ng/mL Total Protein (6.3-8.2) g/dL Albumin (3.5-5.0) g/dL Globulin (1.7-4.1) g/dL Albumin/Globulin Ratio (1.0-2.8) Lipase (23-300) U/L SARS-CoV-2 (PCR) Positive H (Negative) 01/01/21 Range/Units 22:25 WBC (4.5-11.0) X10^3/uL RBC (4.0-5.2) X10^6/uL Hgb (12.0-16.0) g/dL Hct (36-46) % MCV (80-100) fL MCH (26-34) PG MCHC (30-36) % RDW (11.6-14.8) % Plt Count (150-400) X10^3/uL Neut % (Auto) (50-75) % Lymph % (Auto) (25-40) % [place] % (Auto) (3-14) % Eos % (Auto) (2-4) % Baso % (Auto) (0-2) % Neut # (Auto) (1130-1197) /uL Lymph # (Auto) (6450-0379) /uL [place] # (Auto) (0-900) /uL Eos # (Auto) (0-450) /uL Baso # (Auto) (0-100) /uL PT (10.1-12.7) SECONDS INR (0.9-1.3) APTT (26.4-36.2) SECONDS Sodium 139 (137-145) mmol/L Potassium 3.9 (3.4-5.1) mmol/L Chloride 104 (98-107) mmol/L Carbon Dioxide 27 (22-32) mmol/L BUN 9 (7-17) mg/dL Creatinine 0.57 (0.52-1.04) mg/dL Estimated GFR > 60.0 (>60) mL/min BUN/Creatinine Ratio 15.8 (6-22) Glucose 94 (70-100) mg/dL Calcium 9.3 (8.4-10.2) mg/dL Total Bilirubin 0.3 (0.2-1.3) mg/dL AST 27 (14-36) IU/L ALT 17 (<35) IU/L Alkaline Phosphatase 48 (38-126) U/L Total Creatine Kinase 43 (30-135) U/L CK-MB (CK-2) TNP CK-MB (CK-2) Rel Index TNP Troponin I < 0.012 (0.01-0.034) ng/mL Total Protein 7.6 (6.3-8.2) g/dL Albumin 4.6 (3.5-5.0) g/dL Globulin 3.0 (1.7-4.1) g/dL Albumin/Globulin Ratio 1.5 (1.0-2.8) Lipase 68 (23-300) U/L SARS-CoV-2 (PCR) (Negative) Imaging Data Chest x-ray: Radiologist's Impression: PROCEDURE: XR CHEST 2V INDICATIONS: SPOUSE COVID+ COUGHING TECHNIQUE: 2 views of the chest were acquired. COMPARISON: [facility], , XR CHEST 1V, 09/22/2020, 14:39. FINDINGS: Surgical changes and devices: None. Lungs and pleura: Lungs are clear. No pleural effusions or pneumothorax. Mediastinum: Mediastinal contours are normal. Heart size is normal. Bones and chest wall: No suspicious bony abnormalities. Soft tissues appear unremarkable. IMPRESSION: No acute cardiopulmonary abnormality Dictated by: Graham Schmitz M.D. on 01/01/2021 at 19:50 ECG Data Attestation: I personally reviewed and interpreted this ECG as follows: Interpretation: Normal sinus rhythm rate is 91 p.r. interval 144 QRS [address] changes MDM Narrative Medical decision making narrative: At this time patient is positive for COVID. He is not hypoxic blood work is overall reassuring. She does not meet admission criteria discussed with her on home monitoring and quarantine. Discharge Plan Departure Patient Disposition: Home Clinical Impression: COVID-19 Instructions: DI for COVID-19 (Suspected or Confirmed ) Activity Restrictions/Additional Instructions: *You have been diagnosed with COVID-19 *What to do: Please monitor your oxygen levels. Expect in to have body aches. Please stay hydrated. Do not return to the emergency department unless you are unable to keep fluid down or your oxygen level is below 90% Please quarantine for 14 days starting when symptoms started *Continue to take medications as directed *Follow up with your primary care provider in 2-3 days *Return to ER if you should have decreased oxygen levels, confusion, bluish left or any new, worsening or concerning symptoms CDC Guidelines for home isolation: - Stay away from others - Limit contact with pets and animals: If you must care for a pet, wash your hands before and after interacting with them - Wear a mask if you are sick - Cover your mouth and nose with a tissue when you cough or sneeze. Dispose of tissues in a lined trash can and wash your hands immediately with soap and water for at least 20 seconds. If soap and water are not available, clean hands with alcohol-based hand oiler helper that contains at least 60% alcohol. - Clean your hands often with soap and water for at least 20 seconds - Avoid touching your eyes, nose and mouth with unwashed hands - Do not share dishes, drinking glasses, cups, eating utensils, towels, or bedding with other people in your home. After using these items, wash them thoroughly with soap and water or put in the medical secretary receptionist. - Clean high-touch surfaces in your isolation area (?sick room? and bathroom) every day; let a caregiver clean and disinfect high-touch surfaces in other areas of the home. Clean the area or item with soap and water or another detergent if it is dirty. Then, use a household disinfectant. Seek medical attention, but call first: - Seek medical care right away if your illness is worsening (for example, if you have difficulty breathing). - Call your doctor before going in: Before going to the doctor?s office or emergency room, call ahead and tell them your symptoms. They will tell you what to do. - If possible, put on a facemask before you enter the building. If you can?t put on a facemask, try to keep a safe distance from other people (at least 6 feet away). This will help protect the people in the office or waiting room. - Follow care instructions from your healthcare provider and local health department: Your local health authorities will give instructions on checking your symptoms and reporting information. Emergency warning signs for COVID-19: - Difficulty breathing or shortness of breath - Persistent pain or pressure in the chest - New confusion or inability to arouse - Bluish lips or face Prescriptions: No Action etodolac 400 mg Tablet 400 mg PO TID RF: 0 hydrocodone-acetaminophen 5-325 mg tablet 1 tab PO Q4-6H PRN (Reason: pain) Qty: 14 RF: 0 ondansetron [Zofran ODT] 4 mg tablet,disintegrating 4 mg PO Q6H PRN (Reason: nausea and vomiting) Qty: 14 RF: 0 Referrals: Daniel Davis MD [Primary Care Provider] -
[2021-01-02 00:30] VITALS: BP 130/65; PULSE 103; RESP 20; O2SAT 96
== END 2021-01-02 01:00 | disposition home or self-care (01) ==
PROVIDERS: Emergency Provider Emergency Medicine; PCP Family Medicine
DX: U07.1 COVID-19 (principal)
CPT/HCPCS: 36415; 71046; 80053; 82550; 83690; 84484; 85025; 85610; 85730; 87635; 93005; 99283; 99284; C9803

== ENCOUNTER → 2021-07-01 15:48 | Outpatient (CLI) | payer OTHER, SELFPAY ==
--- NOTE | 2021-07-01 15:49 | DI.CT.S_ITS ---
PROCEDURE: CT ABDOMEN PELVIS WO/W CON INDICATIONS: Recurring urinary tract infections/left flank pain TECHNIQUE: After the administration of oral contrast, 5 mm thick sections acquired from the diaphragms to the iliac crests. After the administration of intravenous contrast, 5 mm thick sections acquired from the diaphragms to the symphysis. 5 mm thick coronal and sagittal reformats were acquired. For radiation dose reduction, the following was used: automated exposure control, adjustment of mA and/or kV according to patient size. COMPARISON: May 24, 2018. FINDINGS: Image quality: Excellent. ABDOMEN: Lung bases: No consolidation or pleural effusion. Heart size is normal. Solid organs: Liver is normal in size and enhancement. The gallbladder is mildly contracted without evidence of wall thickening or cholelithiasis. Biliary system is non-dilated. No pancreatic duct dilatation or contour deforming mass. Spleen is normal in size and enhancement. No adrenal nodules. Both kidneys are normal in size. Duplicated right renal collecting system (i.e. 2-110). No hydronephrosis or nephrolithiasis. Bowel and peritoneum: Stomach, small and large bowel loops are normal in caliber and wall thickness. No free fluid or air. Normal appendix. Nodes and vessels: No retroperitoneal or mesenteric adenopathy by size criteria. Aorta and inferior vena are normal in caliber. Miscellaneous: No ventral hernias. PELVIS: Genitourinary: Bladder wall thickness is normal. 1.4 cm hypoattenuating lesion in the left adnexa, likely representing an ovarian cyst. Heterogeneity of the uterus, which may reflect myomatous change. Miscellaneous: No inguinal hernias or adenopathy. Bones: No suspicious bony lesions. No vertebral body compression fractures. IMPRESSION: 1. No significant abnormality. 2. Duplicated right renal collecting system. 1. Dictated by: Marco Antonio Paiz M.D. on 07/01/2021 at 16:34 Approved by: Marco Antonio Paiz M.D. on 07/01/2021 at 16:43
== END ==
PROVIDERS: PCP Family Medicine; Referring Provider Urology; Visit Provider Urology
DX: N39.0 Urinary tract infection, site not specified (principal); R10.9 Unspecified abdominal pain
CPT/HCPCS: 74178; Q9967

== ENCOUNTER → 2021-07-03 08:56 | Outpatient (CLI) | payer OTHER, SELFPAY | PROVIDERS: PCP Family Medicine; Referring Provider Urology; Visit Provider Urology | DX: R30.0 Dysuria (principal); N39.0 Urinary tract infection, site not specified; R10.9 Unspecified abdominal pain; N83.202 Unspecified ovarian cyst, left side; Q62.5 Duplication of ureter | CPT/HCPCS: 81002; 87077; 87086; 87186 ==

== ENCOUNTER 2021-07-05 19:40 | Emergency (ER) | payer OTHER, SELFPAY ==
[2021-07-05 19:42] VITALS: BP 131/73; PULSE 121; RESP 18; TEMP 37.2; O2SAT 99
[2021-07-05] MEDS: SODIUM CHLORIDE 0.9% 1,000 ML 1000 ML IV (19:57)
[2021-07-05] MEDS: KETOROLAC 30 MG/ML VIAL 15 MG IV (20:02)
[2021-07-05 20:14] LABS: Add Manual Diff / Slide Review NO; Basophils Absolute Auto 0 /uL (0-100); Basophils Percent Auto 0.3 % (0-2); Eosinophils Absolute Auto 100 /uL (0-450); Eosinophils Percent Auto 0.9 % (2-4); Hematocrit 35.8 % (36-46); Hemoglobin 12.2 g/dL (12.0-16.0); Lymphocytes Absolute Auto 700 /uL (1100-4500); Mean Corpuscular Hemoglobin 31.1 PG (26-34); Mean Corpuscular Volume 91.4 fL (80-100); Monocytes Absolute Auto 700 /uL (0-900); Monocytes Percent Auto 7.7 % (3-14); Neutrophils Absolute Auto 7500 /uL (1500-7000); Neutrophils Percent Auto 83.1 % (50-75); Platelet Count 195 X10^3/uL (150-400); Red Blood Cell Count 3.92 X10^6/uL (4.0-5.2); Red Cell Distribution Width 12.5 % (11.6-14.8)
[2021-07-05 20:20] LABS: Lactate (Lactic Acid) 1.1 mmol/L (0.7-2.1)
[2021-07-05 20:22] LABS: Alanine Aminotransferase 16 IU/L (<35); Albumin 4.7 g/dL (3.5-5.0); Albumin Globulin Ratio 1.6 (1.0-2.8); Alkaline Phosphatase 42 U/L (38-126); Aspartate Aminotransferase 22 IU/L (14-36); BUN Creatinine Ratio 16.4 (6-22); Bilirubin Total 0.4 mg/dL (0.2-1.3); Blood Urea Nitrogen 10 mg/dL (7-17); Calcium 9.7 mg/dL (8.4-10.2); Carbon Dioxide 27 mmol/L (22-32); Chloride 104 mmol/L (98-107); Estimated Glomerular Filt Rate > 60.0 mL/min (>60); Globulin 2.9 g/dL (1.7-4.1); Glucose 92 mg/dL (70-100); HEMOLYSIS < 15 (0-50); Lipase 86 U/L (23-300); Potassium 3.7 mmol/L (3.4-5.1); Sodium 141 mmol/L (137-145); Total Protein 7.6 g/dL (6.3-8.2)
[2021-07-05] MEDS: cefTRIAXone 2,000 MG in SODIUM CHLORIDE 0.9% 100 ML 200 ML IV (20:35)
[2021-07-05 20:38] LABS: Procalcitonin 0.03 ng/mL (<0.5)
--- NOTE | 2021-07-05 22:16 | ED_ITS ---
HPI - Female Genitourinary General Chief complaint: Fever Stated complaint: UTI Time Seen by Provider: 07/05/21 22:10 Source: patient Mode of arrival: Ambulatory Limitations: no limitations History of Present Illness HPI Narrative: Patient here for urinary frequency and urgency and dysuria. Seen by her urologist Dr. Skinner this past Thursday. Urine was completed and culture and sensitivity results below. Was given Bactrim however patient states that she was allergic to Bactrim and had a rash earlier this week with a fever. None since then after Benadryl that she took on that day. History of frequent UTIs. Was scheduled for cystoscopy on Thursday but is rescheduled due to UTI. Has appointment with family doctor in 3 days. Denies any back pain. No nausea or vomiting. Related Data Previous Rx's Medication Instructions Recorded cephalexin 500 mg capsule 500 mg PO QID #20 cap 07/05/21 ibuprofen 600 mg tablet 600 mg PO Q6H PRN #24 tab 07/05/21 phenazopyridine 100 mg tablet 100 mg PO TID PRN #6 tab 07/05/21 (Pyridium) Allergies Allergy/AdvReac Type Severity Reaction Status Date / Time nitrofurantoin Allergy Unknown Verified 07/05/21 19:45 [NITROFURANTOIN] sulfamethoxazole Allergy Hives Verified 07/05/21 19:45 [From Bactrim] trimethoprim [From Bactrim] Allergy Hives Verified 07/05/21 19:45 zolpidem [ZOLPIDEM] AdvReac Unknown hallucinate Verified 07/05/21 19:45 Review of Systems Review of Systems Narrative: GENERAL: Denies chills, fatigue, malaise, positive fever, denies sweats. HEENT: Denies sinus pain, ear pain, sore throat RESPIRATORY: Denies dyspnea, cough CARDIOVASCULAR: Denies chest pain, palpitations GASTROINTESTINAL: Denies nausea, vomiting, abdominal pain : Positive for dysuria,frequency, denies hematuria MUSCULOSKELETAL: denies muscle or bony pain SKIN: Denies rash, skin lesions NEUROLOGIC: Denies weakness, numbness ROS Unobtainable: All systems reviewed & are unremarkable except as noted in HPI and below Patient History Medical History Chronic UTI Duplicated right renal collecting system Family history of kidney stones Herpes simplex with unspecified complication (12/03/11) History of anemia Left flank pain Left ovarian cyst Recurrent urinary tract infection Urinary tract infection Surgical History Status post delivery (06/03/00) Status post delivery (05/14/03) Status post delivery (03/17/14) alcohol intake frequency: 0-2 drinks per day Substance Use Type: does not use Exam Narrative Exam Narrative: GENERAL: in no distress, not toxic not dyspneic HEAD: Normocephalic. EYES: Pupils equal round NECK: Trachea midline. CARDIOVASCULAR: Regular rate and rhythm without murmurs RESPIRATORY: Clear to auscultation. Breath sounds equal bilaterally. No wheezes, rales, or rhonchi. GASTROINTESTINAL: Abdomen soft, non-tender, no peritoneal signs, bowel sounds present EXTREMITIES: No gross deformities. BACK: No flank tenderness. NEURO: AOx4. SKIN: Warm and dry PSYCH: Not anxious, is cooperative Initial Vital Signs Initial Vital Signs: Vital Signs Temperature 99.0 F 07/05/21 19:42 Pulse Rate 121 H 07/05/21 19:42 Respiratory Rate 18 07/05/21 19:42 Blood Pressure 131/73 07/05/21 19:42 Pulse Oximetry 99 07/05/21 19:42 Course Course Course Narrative: No new issues during course of stay. Orders Ordered: Discontinued Medications Sodium Chloride (Normal Saline 0.9%) 1,000 mls @ 1,000 mls/hr IV BOLUS ONE Stop: 07/05/21 20:46 Last Infusion: 07/05/21 22:04 Dose: 0 mls/hr Documented by: Admin: 07/05/21 19:57 Dose: 1,000 mls/hr Documented by: EVERARDO Ceftriaxone Sodium 2,000 mg/ (Sodium Chloride) 100 mls @ 200 mls/hr IV NOW ONE Stop: 07/05/21 20:26 Last Infusion: 07/05/21 21:18 Dose: 0 mls/hr Documented by: Admin: 07/05/21 20:35 Dose: 200 mls/hr Documented by: RICKY Ketorolac Tromethamine (Ketorolac 30 Mg/Ml Vial) 15 mg IV NOW ONE Stop: 07/05/21 20:00 Last Admin: 07/05/21 20:02 Dose: 15 mg Documented by: EVERARDO Reevaluation(s) Reevaluation #1: Reviewed with patient results. Agrees with treatment plan. Time: 22:22 Vital Signs Vital signs: Vital Signs - 8 hr 07/05/21 19:42 Temperature 99.0 F Pulse Rate 121 H Respiratory Rate 18 Blood Pressure 131/73 Pulse Oximetry 99 MDM - Female Genitourinary Differential Diagnosis Differential diagnosis: Likely urinary tract infection Medical Records Medical records narrative: [facility] CLIA ID [id number] [address] [place] [address] RUN DATE: 07/05/21 Specimen Inquiry PAGE 1 RUN TIME: 2222 Name: Yudtih Servin Age/Sex: 40/F Attend Dr: Payam Skinner MD Unit#: [id number] : 1980Location: LAB Re07/03/21 Disch: Status: REG CLI SPEC #: [id number] KASSIDY: 07/03/21 STATUS: COMP REQ #: [id number] SPDESC: RECD: 07/03/[address]: Payam Skinner MD SOURCE: Urine CC ENTR: 07/03/[address]: Daniel Davis MD FAX TO: ORDERED: URINE CULTURE Procedure Result Verified Site Urine Culture Final 07/05/21705 Organism 1 Escherichia coli [place] Count >100,000 CFU/ml 1. Escherichia coli M.I.C. RX --------- --- * Amoxicillin/Clavulanate <=2 S * Ampicillin <=2 S * Ampicillin/Sulbactam <=2 S * Cefazolin <=4 S * Cefepime <=1 S * Ceftriaxone <=1 S * Ciprofloxacin <=0.25 S * Ertapenem <=0.5 S * Gentamicin <=1 S * Imipenem <=0.25 S * Levofloxacin <=0.12 S * Nitrofurantoin <=16 S * Tobramycin <=1 S * Trimethoprim/Sulfamethoxazole <=20 S * Piperacillin/Tazobactam <=4 S END OF REPORT Lab Data Result diagrams: 07/05/21 19:50 07/05/21 19:50 Labs: Lab Results 07/05/21 07/05/21 07/05/21 Range/Units 19:50 19:50 19:50 WBC 9.0 (4.5-11.0) X10^3/uL RBC 3.92 L (4.0-5.2) X10^6/uL Hgb 12.2 (12.0-16.0) g/dL Hct 35.8 L (36-46) % MCV 91.4 (80-100) fL MCH 31.1 (26-34) PG MCHC 34.0 (30-36) % RDW 12.5 (11.6-14.8) % Plt Count 195 (150-400) X10^3/uL Neut % (Auto) 83.1 H (50-75) % Lymph % (Auto) 8.0 L (25-40) % [place] % (Auto) 7.7 (3-14) % Eos % (Auto) 0.9 L (2-4) % Baso % (Auto) 0.3 (0-2) % Neut # (Auto) 7500 H (5858-7273) /uL Lymph # (Auto) 700 L (6800-9514) /uL [place] # (Auto) 700 (0-900) /uL Eos # (Auto) 100 (0-450) /uL Baso # (Auto) 0 (0-100) /uL Sodium 141 (137-145) mmol/L Potassium 3.7 (3.4-5.1) mmol/L Chloride 104 (98-107) mmol/L Carbon Dioxide 27 (22-32) mmol/L BUN 10 (7-17) mg/dL Creatinine 0.61 (0.52-1.04) mg/dL Estimated GFR > 60.0 (>60) mL/min BUN/Creatinine Ratio 16.4 (6-22) Glucose 92 (70-100) mg/dL Lactate 1.1 (0.7-2.1) mmol/L Calcium 9.7 (8.4-10.2) mg/dL Total Bilirubin 0.4 (0.2-1.3) mg/dL AST 22 (14-36) IU/L ALT 16 (<35) IU/L Alkaline Phosphatase 42 (38-126) U/L Total Protein 7.6 (6.3-8.2) g/dL Albumin 4.7 (3.5-5.0) g/dL Globulin 2.9 (1.7-4.1) g/dL Albumin/Globulin Ratio 1.6 (1.0-2.8) Lipase 86 (23-300) U/L Procalcitonin 0.03 (<0.5) ng/mL MDM Narrative Medical decision making narrative: Appropriate for discharge home. Exam and laboratory studies reassuring. Not toxic. No fever here. Pain control. Culture and sensitivity of urine reviewed. Appropriate antibiotics started here. Will continue with Keflex. Return precautions reviewed with patient. Patient has good follow-up. Not toxic a discharge. Patient agrees with treatment plan. Discharge Plan Departure Patient Disposition: Home Clinical Impression: Urinary tract infection Qualifiers: Urinary tract infection type: site unspecified Hematuria presence: without berkley turia Qualified Code(s): N39.0 - Urinary tract infection, site not specified Instructions: DI for Urinary Tract Infection (UTI) Activity Restrictions/Additional Instructions: See family doctor in 3 days as scheduled. See Dr[address] Skinner, your urologist as scheduled. Continue antibiotic tomorrow. Keep well hydrated. Return if worse or any questions or concerns. Continue antibiotic prescription tomorrow. Has been sent to your [facility] in [place]. Prescriptions: New phenazopyridine [Pyridium] 100 mg tablet 100 mg PO TID PRN (Reason: pain) Qty: 6 RF: 0 cephalexin 500 mg capsule 500 mg PO QID Qty: 20 RF: 0 ibuprofen 600 mg tablet 600 mg PO Q6H PRN (Reason: fever or pain) Qty: 24 RF: 0 Referrals: Payam Skinner MD [Physician] - Daniel Davis MD [Primary Care Provider] -
[2021-07-05 22:28] VITALS: BP 106/61; PULSE 85; RESP 18; O2SAT 97
== END 2021-07-05 22:28 | disposition home or self-care (01) ==
PROVIDERS: Emergency Provider Emergency Medicine; PCP Family Medicine
DX: N39.0 Urinary tract infection, site not specified (principal)
CPT/HCPCS: 36415; 80053; 83605; 83690; 84145; 85025; 87040; 96361; 96365; 96375; 99284; J0696; J1885

== ENCOUNTER → 2021-07-16 10:35 | Outpatient (CLI) | payer OTHER, SELFPAY ==
--- NOTE | 2021-07-16 | DI.US.S_ITS ---
PROCEDURE: US PELVIC COMPLETE INDICATIONS: FOLLOW UP LEFT OVARY TECHNIQUE: Real-time scanning was performed of the pelvic organs, with image documentation. Additional endovaginal scanning was necessary due to incomplete visualization of the adnexal and endometrial structures by transabdominal scanning. COMPARISON: Located Within [facility], CT, CT ABDOMEN PELVIS WO/W CON, 07/01/2021, 15:54. FINDINGS: Uterus: Uterus is normal in size at 9.3 x 6.7 x 5.6 cm. The endometrium measures 8.2 mm in combined thickness. Uterus is sonographically normal. Incidental note made of nabothian cysts. Ovaries: Right ovary measures 3.4 x 2.5 x 2.0 centimeters. Left ovary measures 4.8 x 4.2 x 2.3 centimeters. There is a 2.6 x 1.6 x 1.9 centimeter dominant follicle left ovary. Other: No pathologic free abdominal or pelvic fluid. IMPRESSION: 1. Uterus is sonographically normal. 2. . Right ovary is sonographically normal. 3. 2.6 x 1.6 x 1.9 centimeter left adnexal simple cyst. Dictated by: Anita Wood MD, PhD on 07/16/2021 at 13:55 Approved by: Anita Wood MD, PhD on 07/16/2021 at 13:58
== END ==
PROVIDERS: PCP Family Medicine; Referring Provider Family Medicine; Visit Provider Family Medicine
DX: N83.9 Noninflammatory disorder of ovary, fallopian tube and broad ligament, unspecified (principal); N83.202 Unspecified ovarian cyst, left side
CPT/HCPCS: 76830; 76856

== ENCOUNTER → 2021-08-12 11:25 | Outpatient (CLI) | payer OTHER, SELFPAY ==
[2021-08-12 13:13] LABS: Appearance Urine UA CLEAR; Bilirubin Urine UA NEGATIVE (NEGATIVE); Color Urine UA YELLOW; Glucose Urine UA NEGATIVE (Negative); Ketones Urine UA NEGATIVE (NEGATIVE); Leukocyte Esterase Urine UA NEGATIVE (NEGATIVE); Nitrite Urine UA NEGATIVE (Negative); Occult Blood Urine UA NEGATIVE (Negative); Protein Urine UA NEGATIVE (Negative); Urobilinogen Urine UA 0.2 E.U./dL (0.2)
[2021-08-12 13:20] LABS: Bacteria Urine None Seen; Culture Indicated Urine Cult Not Indicated; RBC Urine None Seen (0-5/HPF); Squamous Epithelial Cell Urine 5-10 /HPF (0-5/HPF); WBC Urine 1-5/HPF (0-5/HPF)
== END ==
PROVIDERS: PCP Family Medicine; Referring Provider Urology; Visit Provider Urology
DX: N39.0 Urinary tract infection, site not specified (principal)
CPT/HCPCS: 81001

== ENCOUNTER → 2022-01-04 10:11 | Outpatient (CLI) | payer OTHER, SELFPAY | PROVIDERS: PCP Family Medicine; Referring Provider Nurse Practitioner Critical Care Medicine; Visit Provider Nurse Practitioner Critical Care Medicine | DX: R30.0 Dysuria (principal) | CPT/HCPCS: 87086 ==

== ENCOUNTER → 2022-10-27 15:21 | Outpatient (CLI) | payer OTHER, SELFPAY ==
--- NOTE | 2022-10-27 15:23 | DI.MG.S_ITS ---
BILATERAL DIGITAL SCREENING MAMMOGRAM 3D/2D WITH CAD: 10/27/2022 CLINICAL: Routine screening. Comparison is made to exam dated: 08/17/2018 mammogram - [facility]. Both breasts are heterogeneously dense, which may obscure small masses (category c / 51-75% glandular tissue). Current study was also evaluated with a Computer Aided Detection (CAD) system. There is a high density asymmetry with an indistinct margin in the right breast at 12 o'clock anterior depth. This is more prominent. No other significant masses, calcifications, or other findings are seen in either breast. IMPRESSION: INCOMPLETE: NEEDS ADDITIONAL IMAGING EVALUATION The high density asymmetry in the right breast is indeterminate. Additional views with possible ultrasound are recommended. Based on the Tyrer Cuzick model (a risk assessment model) the patient's lifetime risk is 10.1% and her 10 year risk is 1.2%. According to the ACR, ACS, and NCCN guidelines, an annual breast MRI exam along with mammogram is recommended if the patient's lifetime risk is 20% or greater. This exam was interpreted at Station ID: [id number]. NOTE: For mammograms, a report in lay terms will be sent to the patient. Approximately 15% of breast malignancies will not be visualized mammographically. In the management of a palpable breast mass, a negative mammogram must not discourage biopsy of a clinically suspicious lesion. Electronically Signed By: Margarita turner/karen:10/28/2022 10:30:13 letter sent: Additional Imaging Needed ACR BI-RADS Category 0: Incomplete 3340F
== END ==
PROVIDERS: PCP Family Medicine; Referring Provider Family Medicine; Visit Provider Family Medicine
DX: Z12.31 Encounter for screening mammogram for malignant neoplasm of breast (principal); N64.89 Other specified disorders of breast
CPT/HCPCS: 77063; 77067

== ENCOUNTER → 2022-12-22 13:15 | Outpatient (CLI) | payer OTHER, SELFPAY ==
--- NOTE | 2022-12-22 13:18 | DI.MG.S_ITS ---
UNILATERAL RIGHT DIGITAL DIAGNOSTIC MAMMOGRAM 3D/2D WITH ADDITIONAL VIEWS: 12/22/2022 CLINICAL: Additional evaluation requested from prior study. Comparison is made to exams dated: 10/27/2022 mammogram and 08/17/2018 mammogram - [facility]. The right breast is heterogeneously dense, which may obscure small masses (category c / 51-75% glandular tissue). There is a possible asymmetry in the right breast at 12 o'clock anterior depth. This is not seen in additional views. No other significant masses or calcifications are seen in the breast. IMPRESSION: BENIGN There is no mammographic evidence of malignancy. Return to annual mammogram screening schedule is recommended. Based on the Tyrer Cuzick model (a risk assessment model) the patient's lifetime risk is 10.0% and her 10 year risk is 1.4%. According to the ACR, ACS, and NCCN guidelines, an annual breast MRI exam along with mammogram is recommended if the patient's lifetime risk is 20% or greater. This exam was interpreted at Station ID: [id number]. NOTE: For mammograms, a report in lay terms will be sent to the patient. Approximately 15% of breast malignancies will not be visualized mammographically. In the management of a palpable breast mass, a negative mammogram must not discourage biopsy of a clinically suspicious lesion. Electronically Signed By: Celso Linares M.D. lc/:12/22/2022 14:03:21 letter sent: Normal Exam ACR BI-RADS Category 2: Benign Finding(s) 3342F
== END ==
PROVIDERS: PCP Family Medicine; Referring Provider Family Medicine; Visit Provider Family Medicine
DX: R92.8 Other abnormal and inconclusive findings on diagnostic imaging of breast (principal)
CPT/HCPCS: 77065; G0279

== ENCOUNTER → 2023-08-14 08:22 | Outpatient (CLI) | payer OTHER, SELFPAY | PROVIDERS: PCP Family Medicine; Visit Provider Nurse Practitioner Family | DX: R10.9 Unspecified abdominal pain (principal) | CPT/HCPCS: 87077; 87086; 87186 ==

== ENCOUNTER 2023-11-18 15:14 | Emergency (ER) | payer OTHER, SELFPAY ==
[2023-11-18 15:26] VITALS: BP 140/80; PULSE 79; RESP 18; TEMP 36.6; O2SAT 100; BMI 25.8
--- NOTE | 2023-11-18 16:56 | ED.DIZZY ---
HPI - Dizziness <Cat Velazquez PA-C - Last Filed: 11/18/23 18:54> General Chief Complaint: Dizziness Stated Complaint: Vertigo, 3 weeks Time Seen by Provider: 11/18/23 16:03 Source: patient Mode of arrival: Ambulatory History of Present Illness HPI Narrative: Patient is a 42-year-old female who presents with chief complaint of vertigo. She reports a history of vertigo, diagnosed as BPPV by Dr. Goddard, for several years. It has occurred monthly with her menstrual cycle. She has tried the [place] maneuver before without any improvement. She is never taken any medication for it. She has not had her had any imaging of her brain. She has never seen a neurologist. She denies hearing loss or tinnitus. She is awaiting an appointment with an osmar-neurologist at [facility]. Three weeks ago, an episode started which was the worst she has ever had. She could not look up or lie on either side of her body without significant vertigo and nausea. Throughout this time, she has not had any acute weakness, headache, vomiting, fever, neck stiffness. She was referred by her primary care to a physical therapist who specializes in vertigo. She saw this provider who noted that she has significant in unusual nystagmus that seems to change directions rather than staying unilateral. He was suspicious that she had a rare form of vertigo. Over time, the symptoms have gotten less severe. Today she presents to the emergency room because she was told to come to the ER if vertigo lasted for more than 2 weeks for an MRI. Related Data Home Medications Medication Instructions Recorded Confirmed valacyclovir 1 gram tablet 1,000 mg PO BID 08/14/23 11/18/23 Previous Rx's Medication Instructions Recorded meclizine 25 mg tablet 25 mg PO TID PRN dizziness #14 tabs 11/18/23 ondansetron 4 mg disintegrating 4 mg PO Q8H PRN nausea and 11/18/23 tablet vomiting #14 tabs Allergies Allergy/AdvReac Type Severity Reaction Status Date / Time nitrofurantoin Allergy Unknown Verified 08/14/23 08:16 [NITROFURANTOIN] sulfamethoxazole Allergy Hives Verified 08/14/23 08:16 [From Bactrim] trimethoprim [From Bactrim] Allergy Hives Verified 08/14/23 08:16 zolpidem [ZOLPIDEM] AdvReac Unknown hallucinate Verified 08/14/23 08:16 Review of Systems <Cat Velazquez PA-C - Last Filed: 11/18/23 18:54> Review of Systems ROS Unobtainable: All systems reviewed & are unremarkable except as noted in HPI and below Patient History <Cat Velazquez PA-C - Last Filed: 11/18/23 18:54> Medical History Urinary tract infection Duplicated right renal collecting system Left ovarian cyst Left flank pain Recurrent urinary tract infection Herpes simplex with unspecified complication (12/03/11) Family history of kidney stones History of anemia Chronic UTI Surgical History Status post delivery (03/17/14) Status post delivery (05/14/03) Status post delivery (06/03/00) Social History Smoking Status: Never smoker Smoking Status: Never smoker alcohol intake frequency: a few times a week Substance Use Type: does not use Exam <Cat Velazquez PA-C - Last Filed: 11/18/23 18:54> Narrative Exam Narrative: GENERAL: 42 year old patient appears stated age. Well-developed patient, in no acute distress. NEURO: AOx3. Patient is alert and oriented x3 and with normal mood and affect. Cranial nerves II through XII are intact and there is no appreciable numbness or weakness. HEAD: Atraumatic. Normocephalic. EYES: Pupils equal round and reactive. Extraocular motions intact. No scleral icterus. No injection or drainage. ENT: Nose without bleeding or purulent drainage. Right side of the face with diminished movement due to dental work this morning prior to coming to the emergency room.. Airway patent. RESPIRATORY: No increased work of breathing or distress SKIN: No rash or erythema of visible areas Initial Vital Signs Initial Vital Signs: Vital Signs Temperature 97.9 F 11/18/23 15:26 Pulse Rate 79 11/18/23 15:26 Respiratory Rate 18 11/18/23 15:26 Blood Pressure 140/80 11/18/23 15:26 Pulse Oximetry 100 11/18/23 15:26 Oxygen Delivery Method Room Air 11/18/23 15:26 <Nessa Pineda DO - Last Filed: 11/19/23 07:44> Initial Vital Signs Initial Vital Signs: Vital Signs Temperature 97.9 F 11/18/23 15:26 Pulse Rate 79 11/18/23 15:26 Respiratory Rate 18 11/18/23 15:26 Blood Pressure 140/80 11/18/23 15:26 Pulse Oximetry 100 11/18/23 15:26 Oxygen Delivery Method Room Air 11/18/23 15:26 Course <Cat Velazquez PA-C - Last Filed: 11/18/23 18:54> Vital Signs Vital signs: Vital Signs - 8 hr 11/18/23 15:26 Temperature 97.9 F Pulse Rate 79 Respiratory Rate 18 Blood Pressure 140/80 Pulse Oximetry 100 Oxygen Delivery Method Room Air <Nessa Pineda DO - Last Filed: 11/19/23 07:44> Vital Signs Vital signs: Vital Signs - 8 hr 11/18/23 15:26 Temperature 97.9 F Pulse Rate 79 Respiratory Rate 18 Blood Pressure 140/80 Pulse Oximetry 100 Oxygen Delivery Method Room Air MDM - Dizziness <Cat Velazquez PA-C - Last Filed: 11/18/23 18:54> MDM Narrative Medical decision making narrative: Multiple etiologies for patient's symptoms considered including, but not limited to: BPPV, Meniere's, vestibular neuronitis, labyrinthitis Patient with a long history of BPPV presents with a 3 week long episode of vertigo, now improving. She has no new symptoms, headache or neuro deficit that prompted her visit today. I agree that she is likely in need of imaging of her head but there is limited utility in obtaining a head CT today. We are unable to obtain an MRI. I encouraged her to follow up about her referral to [facility] to see the specialist. We discussed trying different medications to manage the symptoms. She is going on a trip next week so this may be helpful. I will prescribe meclizine and ondansetron. Return precautions advised. Patient's symptoms improved over duration of stay with above-stated therapies. Findings and discharge diagnosis discussed with patient/family followed by verbalization of understanding Return precautions discussed with patient/family whom verbalize understanding of diagnosis and plan Discharge Plan Departure Patient Disposition: Home Clinical Impression: Benign paroxysmal positional vertigo Qualifiers: Laterality: bilateral Qualified Code(s): H81.13 - Benign paroxysmal vertigo, bilateral Instructions: DI for Vertigo Activity Restrictions/Additional Instructions: *You have been diagnosed with vertigo. I hope you are able to get an appointment with the specialist soon. I have sent to prescriptions to the pharmacy for you, 1 is a medicine for vertigo and wonders medicine for nausea. You can try these and see if they help you. I hope you have a great trip next week. *What to do: *Please continue to take your regular medications as directed. [x] New medication prescriptions sent [facility] [ ] New medication written as a paper prescription [ ] No new medications given *Please follow up with your primary care provider in 2-3 days, call for an appointment. Let them know you were seen in the Emergency Department and that we ask that you be seen in follow up. We will electronically transmit a record of today's note if your PCP is in our system *If you do not have a primary care provider please contact the [facility] Resource line at [phone]. They will ask some questions about your medical history and help get you set up with a doctor in the community. *Return to Emergency Department if you should have any new, worsening or concerning symptoms, such as [fever greater than 101 F, shaking chills, worsening pain, persistent vomiting or other concerning symptoms]. Prescriptions: New meclizine 25 mg tablet 25 mg PO TID PRN (Reason: dizziness) Qty: 14 0RF Rx Instructions: 0.5-1 tab as needed for dizziness ondansetron 4 mg tablet,disintegrating 4 mg PO Q8H PRN (Reason: nausea and vomiting) Qty: 14 0RF No Action valacyclovir 1 gram tablet 1,000 mg PO BID Referrals: Daniel Davis MD [Primary Care Provider] - Stand Alone Forms: Patient Portal/API ED Sign-out <Nessa Pineda DO - Last Filed: 11/19/23 07:44> Cosign ED Attending Russellature Attestation: I was available for consultation.
== END 2023-11-18 17:04 | disposition home or self-care (01) ==
PROVIDERS: Emergency Provider Physician Assistant; PCP Family Medicine
DX: H81.13 Benign paroxysmal vertigo, bilateral (principal)
CPT/HCPCS: 99281; 99283

== ENCOUNTER → 2023-12-24 14:42 | Outpatient (CLI) | payer OTHER, SELFPAY ==
--- NOTE | 2023-12-24 | DI.MG.S_ITS ---
BILATERAL DIGITAL SCREENING MAMMOGRAM 3D/2D WITH CAD: 12/24/2023 CLINICAL: Routine screening. Comparison is made to exams dated: 10/27/2022 mammogram and 08/17/2018 mammogram - [facility]. Both breasts are heterogeneously dense, which may obscure small masses (category c / 51-75% glandular tissue). Current study was also evaluated with a Computer Aided Detection (CAD) system. No significant masses, calcifications, or other findings are seen in either breast. There has been no significant interval change. IMPRESSION: NEGATIVE There is no mammographic evidence of malignancy. A 1 year screening mammogram is recommended. Based on the Tyrer Cuzick model (a risk assessment model) the patient's lifetime risk is 10.0% and her 10 year risk is 1.5%. According to the ACR, ACS, and NCCN guidelines, an annual breast MRI exam along with mammogram is recommended if the patient's lifetime risk is 20% or greater. This exam was interpreted at Station ID: [id number]. NOTE: For mammograms, a report in lay terms will be sent to the patient. Approximately 15% of breast malignancies will not be visualized mammographically. In the management of a palpable breast mass, a negative mammogram must not discourage biopsy of a clinically suspicious lesion. Electronically Signed By: Celso bowman/karen:12/24/2023 16:07:53 letter sent: Normal Exam ACR BI-RADS Category 1: Negative [id number]
== END ==
PROVIDERS: PCP Family Medicine; Referring Provider Family Medicine; Visit Provider Family Medicine
DX: Z12.31 Encounter for screening mammogram for malignant neoplasm of breast (principal); R92.333 Mammographic heterogeneous density, bilateral breasts
CPT/HCPCS: 77063; 77067

== ENCOUNTER → 2024-02-02 08:12 | Outpatient (CLI) | payer OTHER, SELFPAY ==
--- NOTE | 2024-02-02 08:14 | DI.US.S_ITS ---
PROCEDURE: US RENAL COMPLETE INDICATIONS: FREQUENT UTI TECHNIQUE: Real-time scanning was performed of the kidneys and bladder, with image documentation. COMPARISON: [facility], US, RENAL COMPLETE, 12/20/2013, 15:12. FINDINGS: Kidneys: Kidneys are normal in size. Right kidney measures 12.0 cm long; left kidney measures 11.9 cm long. Right renal cortical thickness is 1.3 cm; left renal cortical thickness is 1.9 cm. Renal cortical echotexture is normal. No hydronephrosis or nephrolithiasis. No suspicious solid mass lesions. Bladder: Pre-void bladder volume is 74 mL. Post-void residual is 0 mL. Pre-void images demonstrate no intraluminal masses or stones. On pre-void images, bilateral ureteral jets are noted with color Doppler interrogation. (Of note, ureteral jets may not be detectable in up to 25% of cases due to insufficient differences in specific gravity between ureteral and bladder urine). Miscellaneous: No free pelvic fluid. IMPRESSION: 1. No hydronephrosis. No postvoid residual. Dictated by: Tanna Hong M.D. on 02/02/2024 at 9:43 Approved by: Tanna Hong M.D. on 02/02/2024 at 9:44
== END ==
PROVIDERS: PCP Family Medicine; Referring Provider Registered Nurse; Visit Provider Registered Nurse
DX: R10.9 Unspecified abdominal pain (principal); R30.0 Dysuria; Z87.440 Personal history of urinary (tract) infections; Z87.442 Personal history of urinary calculi
CPT/HCPCS: 76770

== ENCOUNTER → 2024-05-06 12:47 | Outpatient (ROUT) | payer OTHER, SELFPAY ==
[2024-05-06 13:02] LABS: INR 1.1 (0.9-1.3); Prothrombin Time 12.7 SECONDS (9.4-12.5)
== END ==
PROVIDERS: PCP Family Medicine; Visit Provider Registered Nurse
DX: R23.3 Spontaneous ecchymoses (principal)
CPT/HCPCS: 85610

== ENCOUNTER → 2024-07-28 10:46 | Outpatient (CLI) | payer OTHER, SELFPAY ==
[2024-07-28 11:43] LABS: Add Manual Diff / Slide Review NO; Basophils Absolute Auto 0 /uL (0-100); Basophils Percent Auto 0.8 % (0-2); Eosinophils Absolute Auto 100 /uL (0-450); Eosinophils Percent Auto 1.3 % (2-4); Hematocrit 38.6 % (36-46); Hemoglobin 12.9 g/dL (12.0-16.0); Lymphocytes Absolute Auto 1500 /uL (1100-4500); Lymphocytes Percent Auto 30.2 % (25-40); Mean Corpuscular HGB Conc 33.5 % (30-36); Mean Corpuscular Hemoglobin 31.1 PG (26-34); Mean Corpuscular Volume 92.7 fL (80-100); Monocytes Absolute Auto 400 /uL (0-900); Neutrophils Absolute Auto 3000 /uL (1500-7000); Neutrophils Percent Auto 59.7 % (50-75); Platelet Count 235 X10^3/uL (150-400); Red Blood Cell Count 4.16 X10^6/uL (4.0-5.2); Red Cell Distribution Width 13.3 % (11.6-14.8)
[2024-07-28 11:51] LABS: BUN Creatinine Ratio 14.8 (6-22); Blood Urea Nitrogen 9 mg/dL (7-17); Calcium 9.4 mg/dL (8.4-10.2); Carbon Dioxide 27 mmol/L (22-32); Chloride 102 mmol/L (98-107); Estimated Glomerular Filt Rate > 60 mL/min (>60); Glucose 124 mg/dL (70-100); HEMOLYSIS < 15 (0-50); Potassium 4.5 mmol/L (3.4-5.1); Sodium 136 mmol/L (137-145)
== END ==
PROVIDERS: PCP Family Medicine; Referring Provider Registered Nurse; Visit Provider Registered Nurse
DX: R10.9 Unspecified abdominal pain (principal)
CPT/HCPCS: 36415; 80048; 85025

== ENCOUNTER → 2024-07-28 15:49 | Outpatient (CLI) | payer OTHER, SELFPAY ==
--- NOTE | 2024-07-28 15:49 | DI.CT.S_ITS ---
PROCEDURE: CT KIDNEY URETER BLADDER (KUB) INDICATIONS: left flank pain TECHNIQUE: Axial sections were acquired from the lung bases to the pubic symphysis. Coronal and sagittal reformats were performed. For radiation dose reduction, the following was used: automated exposure control, adjustment of mA and/or kV according to patient size. COMPARISON: , CT, CT KIDNEY URETER BLADDER (KUB), 05/24/2018, 2:40. FINDINGS: Image quality: Diagnostic. Lower Chest: No significant findings. URINARY: Right Kidney: No stones or hydronephrosis. Right Ureter: No hydroureter. Left Kidney: No stones or hydronephrosis. Left Ureter: No hydroureter. Bladder: Normal wall thickness. No stones. ABDOMEN: Liver: No contour-deforming solid mass. Gallbladder: No radiopaque gallstones or wall thickening. Biliary ducts: No biliary dilation. Pancreas: No ductal dilation. Spleen: Size is within normal limits. Adrenal Glands: No adrenal nodules. Stomach and Bowel: Normal colonic caliber, without significant wall thickening. No significant diverticular disease. Fecal debris within the small bowel. Peritoneum: No abnormal intraperitoneal fluid. No free air. Ventral Wall: No hernia. Abdominal Nodes: No enlarged retroperitoneal or mesenteric lymph nodes. Vessels: Aorta and inferior vena cava are normal in size. PELVIS: Pelvic Organs: Unremarkable. Pelvic Nodes: Unremarkable. Miscellaneous: No inguinal hernias are seen. Bones: Unremarkable. IMPRESSION: No obstructing stones or hydronephrosis. Fecal debris within the small-bowel, usually indicating small intestinal bacterial overgrowth versus slow transit. Dictated by: Beni Munguia M.D. on 07/28/2024 at 16:36 Approved by: Beni Munguia M.D. on 07/28/2024 at 16:37
== END ==
PROVIDERS: PCP Family Medicine; Referring Provider Registered Nurse; Visit Provider Registered Nurse
DX: R10.9 Unspecified abdominal pain (principal)
CPT/HCPCS: 36415; 74176; 80048; 85025

== ENCOUNTER → 2025-06-28 17:17 | Outpatient (ROUT) | payer OTHER, SELFPAY ==
[2025-06-28 17:59] LABS: COVID-19 CEPHEID 4-PLEX PCR POSITIVE (Negative); Influenza A - CEPHEID Flu A NEGATIVE (NEGATIVE); Influenza B - CEPHEID Flu B NEGATIVE (NEGATIVE)
== END ==
PROVIDERS: PCP Family Medicine; Visit Provider Family Medicine
DX: R50.9 Fever, unspecified (principal)
CPT/HCPCS: 87637

== ENCOUNTER 2025-07-29 09:06 | Emergency (ER) | payer OTHER, SELFPAY ==
[2025-07-29 09:18] VITALS: BP 128/73; PULSE 78; RESP 14; TEMP 36.7; O2SAT 97; BMI 27.1
--- NOTE | 2025-07-29 09:27 | ED.WOUNDLAC ---
HPI - Wound/Laceration General Chief Complaint: Wound/Laceration Stated Complaint: Possible spider bite rt hand Time Seen by Provider: 07/29/25 09:20 Source: patient Mode of arrival: Ambulatory History of Present Illness HPI narrative: Patient is a healthy 44-year-old female presents today with right index finger pain. He woke up and was having pain in her hand. She pinprick at her MCP on the palmar side. She thinks maybe she was bit by something. There is no redness there is no streaking it hurts to move her index finger but she is able to do so. No fever no chills there is no other weakness. He is definitely reproduced with movement. Related Data Home Medications ?Medication ?Instructions ?Recorded ?Confirmed valacyclovir 1 gram tablet 1,000 mg PO BID 08/14/23 07/29/25 Previous Rx's ?Medication ?Instructions ?Recorded meclizine 25 mg tablet 25 mg PO TID PRN dizziness #14 tabs 11/18/23 ondansetron 4 mg disintegrating 4 mg PO Q8H PRN nausea and 11/18/23 tablet vomiting #14 tabs prednisone 20 mg tablet 40 mg (2 x 20 mg) PO DAILY #4 tabs 07/29/25 Allergies Allergy/AdvReac Type Severity Reaction Status Date / Time nitrofurantoin Allergy Unknown Verified 07/29/25 09:17 (NITROFURANTOIN) sulfamethoxazole (From Allergy Hives Verified 07/29/25 09:17 Bactrim) trimethoprim (From Bactrim) Allergy Hives Verified 07/29/25 09:17 zolpidem (ZOLPIDEM) AdvReac Unknown hallucinate Verified 07/29/25 09:17 Patient History Medical History Urinary tract infection Duplicated right renal collecting system Left ovarian cyst Left flank pain Recurrent urinary tract infection Herpes simplex with unspecified complication (12/03/11) Family history of kidney stones History of anemia Chronic UTI Surgical History Status post delivery (03/17/14) Status post delivery (05/14/03) Status post delivery (06/03/00) Social History Smoking Status: Never smoker Smoking Status: Never smoker alcohol intake frequency: a few times a week Alcohol type: wine Exam Initial Vital Signs Initial Vital Signs: Vital Signs Temperature 98.1 F 07/29/25 09:18 Pulse Rate 78 07/29/25 09:18 Respiratory Rate 14 07/29/25 09:18 Blood Pressure 128/73 07/29/25 09:18 Pulse Oximetry 97 07/29/25 09:18 Oxygen Delivery Method Room Air 07/29/25 09:18 GENERAL: Well-appearing, well-nourished and in no acute distress. CARDIOVASCULAR: peripheral pulses in tact, cap refill <2 sec RESPIRATORY: No respiratory distress, speaks in full sentences without difficulty EXTREMITIES: Normal range of motion, no clubbing or edema. Neurovascularly intact NEUROLOGICAL: Cranial nerves II through XII grossly intact. Normal gait and speech. SKIN/musculoskeletal: Right hand palmar side there is pinprick noted at the MCP joint. There is very minimal swelling there is no erythema there is no fluctuation she can make an okay sign with her thumb and index finger. Sensation between 1st and 2nd digit intact. Cap refills less than 2 seconds Course Vital Signs Vital signs: Vital Signs - 8 hr 07/29/25 09:18 Temperature 98.1 F Pulse Rate 78 Respiratory Rate 14 Blood Pressure 128/73 Pulse Oximetry 97 Oxygen Delivery Method Room Air MDM - Wound/Laceration MDM Narrative Medical decision making narrative: 44-year-old female with pain in her right hand and at her right index finger. She has a very small pinprick there is no change in skin color she has no fluctuation there is no erythema she does have some decreased when she takes but he took pain but she is able to flex extend and make an okay sign. At this time I recommend supportive care no need for antibiotics. Discharge Plan Departure Patient Disposition: Home Clinical Impression: Bug bite of right hand Instructions: DI for Insect Bites and Stings Activity Restrictions/Additional Instructions: *You have been diagnosed with insect bite *What to do: At this time recommend elevation ice soapy water soaks *Continue to take medications as directed Motrin 600 mg every 6 hours for [id number] pain Tylenol 1000 mg every 6 hours for [id number] pain *Follow up with your primary care provider in 2-3 days or call [phone] *Return to ER if you should have increasing redness streaking swelling inability to move finger finger swelling or any new, worsening or concerning symptoms Prescriptions: No Action valacyclovir 1 gram tablet 1,000 mg PO BID prednisone 20 mg tablet 40 mg PO DAILY Qty: 4 0RF meclizine 25 mg tablet 25 mg PO TID PRN (Reason: dizziness) Qty: 14 0RF Rx Instructions: 0.5-1 tab as needed for dizziness ondansetron 4 mg tablet,disintegrating 4 mg PO Q8H PRN (Reason: nausea and vomiting) Qty: 14 0RF Referrals: Daniel Davis MD [Primary Care Provider, Family Practice] Stand Alone Forms: Patient Portal/API
== END 2025-07-29 09:35 | disposition home or self-care (01) ==
PROVIDERS: Emergency Provider Emergency Medicine; PCP Family Medicine
DX: S60.561A Insect bite (nonvenomous) of right hand, initial encounter (principal)
CPT/HCPCS: 99281